=== PATIENT | female | born 1940 | race Caucasian/White ===

== ENCOUNTER → 2016-11-08 | Outpatient (CLI) | payer MEDICARE, OTHER ==
[2015-04-12 14:30] VITALS: BP 127/70
[~2016-11-08] MED LIST: ACET325T9 PO; ASPI-482 PO; ASPI81TA2 PO; ATOR10TA PO; ATOR20TA PO; CEPH-263 PO; CHOL20004 PO; CHOL500016 PO; DIPH25CA58 PO; DOCU-27 PO; DOCU50CA6 PO; FURO10DI IJ; FURO40TA4 PO; HYDR-2666 PO; HYDR473S51 PO; INSU100C SQ; INSU100V13 SQ; LOPE1LIQ7 PO; MENT200L TP; METO2.5T PO; OMEG1CAP38 PO; POLY17PO29 PO; POTA10TA31 PO; POTA20TA12 PO; POTA20TA82 PO; POTA2IV.2 IV; RIVA10TA PO; RIVA20TA2 PO; SENN8.6C2 PO; SILV20CR4 TP; TAMO10TA PO; VIT1CAPS12 PO; VITA113. TP; [UNRECOGNIZED DRUG - CODE] IV; [UNRECOGNIZED DRUG - CODE] IV; [UNRECOGNIZED DRUG - CODE] MC
--- NOTE | 2016-11-08 10:50 | RAD ---
Indication stage breast malignancy. PET/CT was performed from the skull through the proximal thigh. CT was performed primarily for attenuation and localization purposes as opposed to primary diagnostic purposes. 12.5 mCi of FDG was administered. The blood sugar during the examination was entered and 5. Note is made of a previous examination 05/17/2016. On CT the visualized brain appears unremarkable. A dominant soft tissue parenchymal mass in either lung is not seen. An acute finding in the abdomen or pelvis is not seen. Known osseous metastatic disease is seen. On PET the FDG is normally distributed in the visualized brain. No abnormal activity is seen in the neck. Osseous metastatic disease involving the sternum is again seen and appears stable. There is increased FDG activity about the right glenoid view relative to the previous exam most compatible with osseous metastatic disease. Osseous metastatic disease associated with right lower ribs appears to have progressed slightly relative to the previous exam. Osseous metastatic disease in the pelvis has progressed slightly. IMPRESSION: Slight progression of osseous metastatic disease otherwise no significant change in PET/CT imaging relative to the study 05/17/2016
== END | disposition home or self-care (01) ==
LOC: PETSC 07:12
PROVIDERS: ATTEND Internal Medicine Hematology & Oncology
DX: C79.51 Secondary malignant neoplasm of bone (principal); C18.9 Malignant neoplasm of colon, unspecified; F17.200 Nicotine dependence, unspecified, uncomplicated
CPT/HCPCS: 78815; A9552

== ENCOUNTER 2019-01-16 08:25 | Outpatient (CLI) | payer MEDICARE, OTHER ==
[2019-01-16] VITALS (8 sets, daily range): BP systolic 119–165; BP diastolic 55–78
[~2019-01-16] VITALS: Ht 175.3 cm; Wt 105.7 kg
[~2019-01-16 08:25] MED LIST changes: +ASPI-630 PO; -ASPI81TA2 PO; +ATOR40TA PO; +BIFI4CAP PO; +CAPE500T PO; -CHOL20004 PO; +CHOL200074 PO; +DOCU-109 PO; -DOCU-27 PO; -HYDR-2666 PO; +HYDR-2761 PO; +HYDR-3164 PO; +INSU100I11 SQ; +SILV20CR14 TP; -SILV20CR4 TP
[2019-01-16] MEDS ORDERED: ACET500T68 PO (08:58)
[2019-01-16] MEDS ORDERED: DOCU-109 PO (08:58)
[2019-01-16] MEDS ORDERED: LOPE2CAP88 PO (08:58)
[2019-01-16] MEDS ORDERED: VIT1CAPS12 PO (08:58)
[2019-01-16] MEDS ORDERED: BIFI4CAP PO (08:58)
[2019-01-16] MEDS ORDERED: MAGN400O7 PO (08:58)
[2019-01-16] MEDS ORDERED: ATOR40TA PO (08:58)
[2019-01-16] MEDS ORDERED: ASPI-630 PO (08:58)
[2019-01-16] MEDS ORDERED: ONDA4TAB7 PO (08:58)
[2019-01-16 09:27] LABS: CALCIUM 9.9 mg/dL (8.5-10.1); CREATININE 0.9 mg/dL (0.6-1.0); GFR 60.6; POTASSIUM 3.8 mmol/L (3.5-5.1)
[2019-01-16 09:28] LABS: BASO # 0.1 x10^3/uL (0.0-0.2); BASO % 1 % (0-3); EOS # 0.1 x10^3/uL (0.0-0.7); EOS % 2 % (0-3); HEMATOCRIT 39.5 % (36.0-47.0); HEMOGLOBIN 13.3 g/dL (12.0-15.5); LYMPH # 1.1 x10^3/uL (1.0-4.8); LYMPH % 15 % (24-48); MEAN CORPUSCULAR HEMOGLOBIN 35 pg (25-35); MEAN CORPUSCULAR HGB CONC 34 g/dL (31-37); MEAN CORPUSCULAR VOLUME 104 fL (79-100); MONO # 0.9 x10^3/uL (0.0-1.1); MONO % 13 % (0-9); NEUT # 5.1 x10^3/uL (1.8-7.7); NEUT % 70 % (31-73); PLATELET COUNT 141 x10^3/uL (140-400); RED BLOOD COUNT 3.81 x10^6/uL (3.50-5.40); RED CELL DISTRIBUTION WIDTH 17.7 % (11.5-14.5); WHITE BLOOD COUNT 7.2 x10^3/uL (4.0-11.0)
[2019-01-16 09:34] LABS: ALBUMIN 3.5 g/dL (3.4-5.0); ALBUMIN/GLOBULIN RATIO 0.8 (1.0-1.7); TOTAL BILIRUBIN 0.4 mg/dL (0.2-1.0)
[2019-01-16] MEDS ORDERED: LIDOCAINE 1%/EPI 1:100,000 20 ML VIAL. ONE (09:37)
[2019-01-16 09:43] LABS: PROTHROMBIN TIME PATIENT 14.1 SEC (11.7-14.0)
[2019-01-16] MEDS ORDERED: fentaNYL PF VIAL 100 MCG/2 ML VIAL ONE (09:55)
[2019-01-16] MEDS ORDERED: MIDAZOLAM HCL/PF 2 MG/2 ML VIAL. ONE (09:55)
[2019-01-16] MEDS ORDERED: fentaNYL PF VIAL 100 MCG/2 ML VIAL IV ONE (10:15)
[2019-01-16] MEDS ORDERED: MIDAZOLAM HCL/PF 2 MG/2 ML VIAL. IV ONE (10:15)
[2019-01-16] MEDS ORDERED: LIDOCAINE 1%/EPI 1:100,000 20 ML VIAL. IJ ONE (10:15)
--- NOTE | 2019-01-16 12:30 | NUR ---
Discharge Note: BRIGHT MENSAH Discharge instructions and discharge home medications reviewed with Patient and a copy given. All questions have been answered and understanding verbalized. The following instructions and handouts were given: Post moderate sedation and port placement; port information booklet given. Discontinued lines and drains: None to D/C. Patient discharged [facility] with health care worker via [facility] van.
--- NOTE | 2019-01-16 13:52 | RAD ---
Procedure: Ultrasound and fluoroscopically guided placement of right internal jugular power port.. 01/16/2019 1:48 PM Clinical Indication: Long-term antibiotic use Sedation: Conscious sedation was administered for 30 minutes. The patient was monitored by a qualified independent observer throughout the time of sedation. Please refer to the medical record for exact doses of medications utilized to achieve moderate sedation. Fluoroscopy time: 1.2 minutes Dose area product: 3 Gycm2 Consent: The procedure was explained in its entirety to the patient or the patients designated territory representative by a member of the treatment team, including a discussion of the risks, benefits and commonly accepted alternatives to the procedure, as well as the expected consequences of no therapy whatsoever. Discussion of the risks included, but was not limited to, those that are most frequent and those that are rare but possibly severe or life-threatening, as well as the possibility of unforeseen complications. Technique and Findings: All elements of maximal sterile barrier technique including the use of a cap, mask, sterile gown, sterile gloves, large sterile sheet, appropriate hand hygiene, and 2% chlorhexidine for cutaneous antisepsis (or acceptable alternative antiseptic per current guidelines) were followed for this procedure. Following informed consent, and a timeout procedure, the patient was prepped and draped in the usual sterile fashion. Ultrasound interrogation of the right neck revealed patency and compressibility of the right internal jugular vein. A 21-gauge micropuncture was then used to gain access to this vein under ultrasound guidance. A hard copy ultrasound image was recorded. The needle was exchanged over a wire for a sheath. A 1 inch incision was made several centimeters inferior to the venotomy site. A catheter was tunneled from this site dermatotomy site in the neck. Catheter was advanced through peel-away sheath such that its tip was in the proximal right atrium with the patient supine. The catheter was trimmed to length and connected to the port reservoir. The port was found to flush and aspirate normally. The final position of the catheter was confirmed by fluoroscopy, with tip at the cavoatrial junction. The wound was closed in layers using 4-0 Vicryl suture. Sterile dressings were applied. Impression: Successful ultrasound and fluoroscopically guided placement of a right internal jugular PowerPort
== END 2019-01-16 12:30 ==
LOC: INTRAD 08:25
PROVIDERS: ATTEND Internal Medicine Infectious Disease
DX: Z45.2 Encounter for adjustment and management of vascular access device (principal); L03.818 Cellulitis of other sites; Z79.01 Long term (current) use of anticoagulants
CPT/HCPCS: 36415; 36561; 76937; 77001; 80053; 85025; 85610; 99152; 99153; C1751; C1892; J0696; J2250; J3010; J3490; 36558

== ENCOUNTER 2021-10-23 11:16 | Inpatient (IN) | payer MEDICARE, OTHER ==
[~2021-10-23] VITALS: Ht 165.1 cm; Wt 105.5 kg
[~2021-10-23 11:16] MED LIST changes: +ACET500T68 PO; +LOPE-101 PO; +MAGN400O7 PO; +ONDA4TAB7 PO; +POTA20TA4 PO; -POTA20TA82 PO; -TAMO10TA PO; +TAMO10TA6 PO
[2021-10-23] MEDS ORDERED: ONDANSETRON PF 4 MG/2 ML VIAL. IVP ONE (13:45)
[2021-10-23] MEDS ORDERED: CONTRAST GIVEN. MC PRN (13:45)
[2021-10-23] MEDS ORDERED: IOHEXOL 300 MG/ML 100ML VIAL. IV ONE (13:45)
[2021-10-23 13:53] LABS: FECAL OB PT POSITIVE (NEG)
[2021-10-23 14:45] LABS: BASO # 0.1 x10^3/uL (0.0-0.2); BASO % 1 % (0-3); EOS # 0.2 x10^3/uL (0.0-0.7); EOS % 3 % (0-3); HEMATOCRIT 25.7 % (36.0-47.0); HEMOGLOBIN 8.2 g/dL (12.0-15.5); LYMPH # 0.9 x10^3/uL (1.0-4.8); LYMPH % 11 % (24-48); MEAN CORPUSCULAR HEMOGLOBIN 28 pg (25-35); MEAN CORPUSCULAR HGB CONC 32 g/dL (31-37); MEAN CORPUSCULAR VOLUME 86 fL (79-100); MONO % 14 % (0-9); NEUT # 5.3 x10^3/uL (1.8-7.7); NEUT % 70 % (31-73); PLATELET COUNT 216 x10^3/uL (140-400); RED BLOOD COUNT 2.97 x10^6/uL (3.50-5.40); RED CELL DISTRIBUTION WIDTH 19.3 % (11.5-14.5); WHITE BLOOD COUNT 7.5 x10^3/uL (4.0-11.0)
--- NOTE | 2021-10-23 15:33 | PHYS DOC ---
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 Patient denies any abdominal pain, denies any shortness of breath, denies any fever coughing or congestion. Reports seeing clots of blood on her diaper for the last 2 days. Reports history of rectal bleeding from hemorrhoids but she was not sure if this is a rectal bleed or vaginal bleeding. Review of Systems: Review of Systems: Constitutional: Denies fever or chills. [] Eyes: Denies change in visual acuity. [] HENT: Denies nasal congestion or sore throat. [] Respiratory: Denies cough or shortness of breath. [] Cardiovascular: Denies chest pain or edema. [] GI: Reports vaginal bleeding/rectal bleeding, denies nausea, vomiting, bloody stools or diarrhea. [] : Denies dysuria. [] Musculoskeletal: Denies back pain or joint pain. [] Integument: Denies rash. [] Neurologic: Denies headache, focal weakness or sensory changes. [] Psychiatric: Denies depression or anxiety. [] Heart Score: C/O Chest Pain: N/A Risk Factors: Risk Factors: DM, Current or recent (<one month) smoker, HTN, HLP, family h istory of CAD, obesity. Risk Scores: Score 0 - 3: 2.5% MACE over next 6 weeks - Discharge Home Score 4 - 6: 20.3% MACE over next 6 weeks - Admit for Clinical Observation Score 7 - 10: 72.7% MACE over next 6 weeks - Early Invasive Strategies Current Medications: Current Medications Medications (Trade) Dose Ordered Sig/Kamala Start Time Stop Time Status Last Admin Dose Admin Info (CONTRAST GIVEN -- Rx MONITORING) 1 each PRN DAILY PRN 10/23/21 13:45 10/25/21 13:44 Iohexol (Omnipaque 300 Mg/ml) 75 ml 1X ONCE 10/23/21 13:45 10/23/21 13:46 DC Morphine Sulfate (Morphine Sulfate) 4 mg PRN Q15MIN PRN 10/23/21 13:45 10/24/21 13:44 Ondansetron HCl (Zofran) 4 mg 1X ONCE 10/23/21 13:45 10/23/21 13:46 DC Allergies: Allergies: Allergies Coded Allergies Type Severity Reaction Last Updated Verified ibuprofen Allergy Unknown 10/23/21 Yes Physical Exam: PE: Constitutional: Well developed, well nourished, no acute distress, non-toxic appearance. [] HENT: Normocephalic, atraumatic, bilateral external ears normal, oropharynx moist, no oral exudates, nose normal. [] Eyes: PERRLA, EOMI, conjunctiva normal, no discharge. [] Neck: Normal range of motion, no tenderness, supple, no stridor. [] Cardiovascular:Heart rate regular rhythm, no murmur [] Lungs & Thorax: Bilateral breath sounds clear to auscultation [] Abdomen: Bowel sounds normal, soft, no tenderness, no masses, no pulsatile masses. [] Pelvic exam-external vaginal region with no obvious signs of bleeding, patient could not tolerate her legs on the stirrups to do a full pelvic exam. External rectum noted for multiple nonthrombosed hemorrhoids, positive Hemoccult. Back: No tenderness, no CVA tenderness. [] Extremities: No tenderness, no cyanosis, no clubbing, ROM intact, no edema. [] Neurologic: Alert and oriented X 3, normal motor function, normal sensory function, no focal deficits noted. [] Psychologic: Affect normal, judgement normal, mood normal. [] Current Patient Data: Labs: Laboratory Tests Test 10/23/21 13:30 10/23/21 14:35 Stool Occult Blood Positive (NEG) White Blood Count 7.5 x10^3/uL (4.0-11.0) Red Blood Count 2.97 x10^6/uL (3.50-5.40) L Hemoglobin 8.2 g/dL (12.0-15.5) L Hematocrit 25.7 % (36.0-47.0) L Mean Corpuscular Volume 86 fL (79-100) Mean Corpuscular Hemoglobin 28 pg (25-35) Mean Corpuscular Hemoglobin Concent 32 g/dL (31-37) Red Cell Distribution Width 19.3 % (11.5-14.5) H Platelet Count 216 x10^3/uL (140-400) Neutrophils (%) (Auto) 70 % (31-73) Lymphocytes (%) (Auto) 11 % (24-48) L Monocytes (%) (Auto) 14 % (0-9) H Eosinophils (%) (Auto) 3 % (0-3) Basophils (%) (Auto) 1 % (0-3) Neutrophils # (Auto) 5.3 x10^3/uL (1.8-7.7) Lymphocytes # (Auto) 0.9 x10^3/uL (1.0-4.8) L Monocytes # (Auto) 1.0 x10^3/uL (0.0-1.1) Eosinophils # (Auto) 0.2 x10^3/uL (0.0-0.7) Basophils # (Auto) 0.1 x10^3/uL (0.0-0.2) Laboratory Tests 10/23/21 14:35 Vital Signs: Vital Signs Date Time Temp Pulse Resp B/P (MAP) Pulse Ox O2 Delivery O2 Flow Rate FiO2 10/23/21 13:53 98.1 79 18 134/62 (86) 93 Room Air 98.1 EKG: EKG: [] Radiology/Procedures: Radiology/Procedures: []PROCEDURE: CT ABDOMEN PELVIS WO CONTRAST Exam: CT abdomen/pelvis without intravenous contrast Indication: Rectal and vaginal bleeding, history of metastatic breast cancer Comparison: CT chest 7 pelvis 05/05/2018 Technique: Helical CT imaging performed of the abdomen and pelvis without the use of intravenous contrast. Sagittal and coronal reformats were obtained. One or more of the following individualized dose reduction techniques were utilized for this examination: 1. Automated exposure control 2. Adjustment of the mA and/or kV according to patient size 3. Use of iterative reconstruction technique. Findings: Inherently limited evaluation without intravenous contrast. Lower chest: The heart is normal size. There is a right chest wall port with tip terminating at the superior cavoatrial junction. There are coronary artery calcifications. There are new or increased small mediastinal lymph nodes, incompletely evaluated. There are 2 new pulmonary nodules along the minor fissure measuring 4 mm (image 10, series 2). There is a new 3 mm nodule in the anterior right upper lobe (image 6, series 2). There is a new 4 mm nodule in the right lower lobe (image 12, series 2). There is no new consolidative opacities in the posterior medial left lower lobe. Liver: Unremarkable noncontrast appearance of the liver. Gallbladder/Biliary Tree: Cholelithiasis. Pancreas: There is diffuse pancreatic atrophy. Spleen: Normal. Adrenal Glands: Normal. Kidneys/Ureters/Bladder: Kidneys are normal in size. No nephrolithiasis. There is new mild bilateral hydronephrosis and hydroureter. No obstructing calculus seen. There is new moderate bladder wall thickening, greatest anteriorly. Reproductive Organs: Enlarged, leiomyomatous uterus with multiple calcified fibroids, grossly unchanged. No adnexal mass. Stomach, small bowel, and colon: The stomach, small bowel, appendix, and colon are unremarkable. There is some soft tissue thickening in the region of the anus, not well evaluated and nonspecific. Vasculature: No aortic aneurysm. There is mild calcified aortoiliac atherosclerosis. There is an IVC filter in place. Lymph Nodes: No lymphadenopathy. A portacaval lymph node is slightly larger, now 1.1 cm short axis, previously 0.6 cm short axis. Peritoneum and retroperitoneum: No free fluid or free air. Bones: There are diffuse bony metastases, with worsened osseous destruction of the pelvis and multiple lumbar and thoracic vertebral bodies. New compression fracture of T8 with 30 percent height loss. There are old compression fractures at L1, L3, L4, and L5. Additional old compression fracture at T9. The L1, L4, L5 compression fractures have up to 50 percent vertebral body height loss. This has mildly increased at L4. No retropulsion of any fractures. There are multiple bilateral rib lesions and old or healing rib fractures. There is an increased or new soft tissue component along a right posterior ninth rib lesion. Miscellaneous: There is subcutaneous fat stranding in the lower anterior abdominal wall, related to edema or medication injections. Diffuse muscular atrophy in the pelvis and proximal thighs. A partially visualized 4.1 x 2.9 cm fat-containing intramuscular mass in the left proximal thigh is redemonstrated and likely a lipoma. IMPRESSION: 1. Worsened diffuse osseous metastatic disease with increased bony destruction of the pelvis and increased metastatic disease in the lumbar spine. There is a new compression fracture of T8 and multiple old compression fractures in the lower thoracic and lumbar spine. 2. There is a new soft tissue component along a right posterior ninth rib lesion. 3. Several new pulmonary nodules in the right lung base, nonspecific. New left lower lobe opacities, which could be pneumonia or atelectasis. 4. No acute abnormality of the bowel. There is questionable soft tissue thickening in the region of anus, which is nonspecific and not well evaluated by CT. Correlate with physical exam. 5. New mild bilateral hydronephrosis and hydroureter without obstructing calculus visualized. 6. New moderate wall thickening with bladder, greatest anteriorly. Underlying bladder mass or infection not excluded. 7. Enlarged, leiomyomatous uterus, unchanged. 8. Cholelithiasis. 9. A retrievable IVC filter is noted, and the referring physician is encouraged to ensure that a management plan for this filter is in place. If no such plan is present, referral to an interventional clinician on a non-emergent basis should be considered. The [employer] appropriateness criteria for placement and management of IVC filters can be found on the web at: www.acr.org/quality-safety/appropriateness-criteria/interventional Electronically signed by: Sherice Martinez MD (10/23/2021 5:10 PM) [facility] DICTATED and SIGNED BY: SHERICE MARTINEZ MD DATE: 10/23/21 7427 Course & Med Decision Making: Course & Med Decision Making Pertinent Labs and Imaging studies reviewed. (See chart for details) This is a 81-year-old female patient presented to the ED today with vaginal bleeding/rectal bleeding, symptoms for 2 days. Physical exam of the exterior vaginal area does not show signs of bleeding though exam is difficult because patient will not tolerate stirrup position, rectal exam is positive for hemorrhoids and bleeding with clots Vitals on arrival to the ED temperature 99.2, heart rate 73, respiration 20, blood pressure 126/60, O2 sats 94% on room air. CBC with a normal WBC, hemoglobin 8.2 with hematocrit of 25.7, CMP with creatini ne of 1.7, BUN is 20, [id number]. Patient was started on IV fluids. Hemoccult positive. Urine positive for UTI, and started on Rocephin Spoke with Dr. Vivar who accepted patient for admission Routine consult placed for GI, general surgery, MISSING [employer] INVESTIGATOR. Miriam Disclaimer: Miriam Disclaimer: This electronic medical record was generated, in whole or in part, using a voice recognition dictation system. Departure Departure Impression: Primary Impression: Hemorrhoids Qualified Codes: K64.9 - Unspecified hemorrhoids Additional Impressions: Anemia Qualified Codes: D64.9 - Anemia, unspecified Compression fracture of T8 vertebra Qualified Codes: S22.060A - Wedge compression fracture of T7-T8 vertebra, initial encounter for closed fracture Abnormal uterine bleeding Disposition: ADMITTED INPATIENT Condition: STABLE Referrals: STANISLAV CAVAZOS MD (PCP) FANTASMA KOENIG [employer]ER October 23, 2021 15:33
[2021-10-23 15:46] LABS: PROTHROMBIN TIME PATIENT 17.8 SEC (11.7-14.0)
[2021-10-23 15:51] LABS: ALBUMIN/GLOBULIN RATIO 0.5 (1.0-1.7); CREATININE 1.7 mg/dL (0.6-1.0); GFR 28.8; POTASSIUM 4.3 mmol/L (3.5-5.1); TOTAL BILIRUBIN 0.2 mg/dL (0.2-1.0); TOTAL PROTEIN 8.6 g/dL (6.4-8.2)
[2021-10-23] MEDS: MORPHINE SULFATE 4 MG/ML INJ. IV/SQ PRN (15:56)
[2021-10-23 15:58] LABS: CALCIUM 12.5 mg/dL (8.5-10.1)
[2021-10-23 16:23] LABS: BACTERIA,URINE MODERATE /HPF (0-FEW); RBC,URINE FIELD OBSCURED /HPF (0-2); WBC,URINE 20-40 /HPF (0-4)
--- NOTE | 2021-10-23 17:12 | RAD ---
Exam: CT abdomen/pelvis without intravenous contrast Indication: Rectal and vaginal bleeding, history of metastatic breast cancer Comparison: CT chest 7 pelvis 05/05/2018 Technique: Helical CT imaging performed of the abdomen and pelvis without the use of intravenous cont rast. Sagittal and coronal reformats were obtained. One or more of the following individualized dose reduction techniques were utilized for this examinat ion: 1. Automated exposure control 2. Adjustment of the mA and/or kV according to patient size 3. Use of iterative reconstruction technique. Findings: Inherently limited evaluation without intravenous contrast. Lower chest: The heart is normal size. There is a right chest wall port with tip terminating at the s uperior cavoatrial junction. There are coronary artery calcifications. There are new or increased sma ll mediastinal lymph nodes, incompletely evaluated. There are 2 new pulmonary nodules along the minor fissure measuring 4 mm (image 10, series 2). There is a new 3 mm nodule in the anterior right upper lobe (image 6, series 2). There is a new 4 mm nodule in the right lower lobe (image 12, series 2). Th ere is no new consolidative opacities in the posterior medial left lower lobe. Liver: Unremarkable noncontrast appearance of the liver. Gallbladder/Biliary Tree: Cholelithiasis. Pancreas: There is diffuse pancreatic atrophy. Spleen: Normal. Adrenal Glands: Normal. Kidneys/Ureters/Bladder: Kidneys are normal in size. No nephrolithiasis. There is new mild bilateral hydronephrosis and hydroureter. No obstructing calculus seen. There is new moderate bladder wall thic kening, greatest anteriorly. Reproductive Organs: Enlarged, leiomyomatous uterus with multiple calcified fibroids, grossly unchang ed. No adnexal mass. Stomach, small bowel, and colon: The stomach, small bowel, appendix, and colon are unremarkable. Ther e is some soft tissue thickening in the region of the anus, not well evaluated and nonspecific. Vasculature: No aortic aneurysm. There is mild calcified aortoiliac atherosclerosis. There is an IVC filter in place. Lymph Nodes: No lymphadenopathy. A portacaval lymph node is slightly larger, now 1.1 cm short axis, p reviously 0.6 cm short axis. Peritoneum and retroperitoneum: No free fluid or free air. Bones: There are diffuse bony metastases, with worsened osseous destruction of the pelvis and multipl e lumbar and thoracic vertebral bodies. New compression fracture of T8 with 30 percent height loss. T here are old compression fractures at L1, L3, L4, and L5. Additional old compression fracture at T9. The L1, L4, L5 compression fractures have up to 50 percent vertebral body height loss. This has mildl y increased at L4. No retropulsion of any fractures. There are multiple bilateral rib lesions and old or healing rib fractures. There is an increased or n ew soft tissue component along a right posterior ninth rib lesion. Miscellaneous: There is subcutaneous fat stranding in the lower anterior abdominal wall, related to e samir or medication injections. Diffuse muscular atrophy in the pelvis and proximal thighs. A partiall y visualized 4.1 x 2.9 cm fat-containing intramuscular mass in the left proximal thigh is redemonstra yulissa and likely a lipoma. IMPRESSION: 1. Worsened diffuse osseous metastatic disease with increased bony destruction of the pelvis and inc reased metastatic disease in the lumbar spine. There is a new compression fracture of T8 and multiple old compression fractures in the lower thoracic and lumbar spine. 2. There is a new soft tissue component along a right posterior ninth rib lesion. 3. Several new pulmonary nodules in the right lung base, nonspecific. New left lower lobe opacities, which could be pneumonia or atelectasis. 4. No acute abnormality of the bowel. There is questionable soft tissue thickening in the region of anus, which is nonspecific and not well evaluated by CT. Correlate with physical exam. 5. New mild bilateral hydronephrosis and hydroureter without obstructing calculus visualized. 6. New moderate wall thickening with bladder, greatest anteriorly. Underlying bladder mass or infect ion not excluded. 7. Enlarged, leiomyomatous uterus, unchanged. 8. Cholelithiasis. 9. A retrievable IVC filter is noted, and the referring physician is encouraged to ensure that a sima gement plan for this filter is in place. If no such plan is present, referral to an interventional cl inician on a non-emergent basis should be considered. The [employer] appropriatene ss criteria for placement and management of IVC filters can be found on the web at: www.acr.org/quality-safety/appropriateness-criteria/interventional Electronically signed by: Sherice Martinez MD (10/23/2021 5:10 PM) [facility]
--- NOTE | 2021-10-23 18:58 | PDOC1 ---
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 Over the past 2 days she has started to notice clots as well. She has rectal bleeding from hemorrhoids and initially told ED she had vaginal bleeding. She was treated outpatient twice in the past year for hemorrhoids at [facility]. She is being followed outpatient for metastatic breast cancer with bony mets, was unable to tolerate gemcitabine therapy and quit this last year due to swelling of her legs. She now has become wheelchair bound, notes her right knee is "locking up" all the time recently. No recent travel or sick contacts. Labs with WBC 7.5, Hb 8.2, platelets 216, NA 140, K4.3, BUN 50, CR 1.7, glucose 101, calcium 12.5 with albumin 3, alkaline phosphatase 195, ALT 18, AST 57, INR 1.5, urine urinalysis with large leuk esterase, fecal occult positive. CT abdomen pelvis concerning for worsened diffuse osseous metastatic disease with increased bony destruction of the pelvis and increased metastatic disease in the lumbar spine. New compression fracture of T8 and multiple old compression fractures in the lower thoracic and lumbar spine and a new soft tissue component along a right posterior ninth rib lesion. Bladder mass and mild hydronephrosis noted as well. Past Medical History Cardiovascular: HTN Heme/Onc: Cancer, Other Endocrine: Diabetes Past Surgical History Past Surgical History Hemorrhoids, Breast cancer w/ bone mets Past Surgical History: Tonsillectomy, Other Additional Past Surgical Histo: vein graft, R mastectomy, R leg, Past Surgical History: Mastectomy, Hysterectomy Family History Family History: Coronary Artery Disease, Diabetes, Other Social History Smoke: No ALCOHOL: none Current Medications Current Medications Current Medications Morphine Sulfate (Morphine Sulfate) 4 mg PRN Q15MIN PRN IV/SQ PAIN GREATER THAN 3/10 Last administered on 10/23/21at 15:56; Start 10/23/21 at 13:45; Stop 10/24/21 at 13:44 Ondansetron HCl (Zofran) 4 mg 1X ONCE IVP Last administered on 10/23/21at 15:56; Start 10/23/21 at 13:45; Stop 10/23/21 at 13:46; Status DC Iohexol (Omnipaque 300 Mg/ml) 75 ml 1X ONCE IV ; Start 10/23/21 at 13:45; Stop 10/23/21 at 13:46; Status DC Info (CONTRAST GIVEN -- Rx MONITORING) 1 each PRN DAILY PRN MC SEE COMMENTS; Start 10/23/21 at 13:45; Stop 10/25/21 at 13:44 Active Scripts Active Reported Imodium A-D (Loperamide HCl) 2 Mg Capsule 2 Mg PO PRN Align (Bifidobacterium Infantis) 4 Mg Capsule 4 Mg PO DAILY Acetaminophen 500 Mg Tablet 500 Mg PO TID Milk Of Magnesia (Magnesium Hydroxide) 400 Mg/5 Ml Oral.susp 400 Mg PO PRN Zofran (Ondansetron Hcl) 4 Mg Tablet 1 Tab PO Q6HRS Lipitor (Atorvastatin Calcium) 40 Mg Tablet 1 Tab PO QHS Colace (Docusate Sodium) 100 Mg Capsule 100 Mg PO DAILY Preservision Areds Softgel (Vit A/Vit C/Vit E/Zinc/Copper) 1 Each Capsule 1 Each PO 1X Aspirin 81 Mg Tab.chew 1 Tab PO DAILY Align (Bifidobacterium Infantis) 4 Mg Capsule 4 Mg PO DAILY [place] 5-325 Tablet (Acetaminophen/Hydrocodone Bitart) 1 Each Tablet 1 Tab PO PRN Q6HRS PRN Humalog (Insulin Lispro) 100 Unit/1 Ml Insuln.pen 24 Unit SQ BID Levemir (Insulin Detemir) 100 Unit/1 Ml Vial 42 Unit SQ DAILYWBKFT Lipitor (Atorvastatin Calcium) 40 Mg Tablet 40 Mg PO HS Colace (Docusate Sodium) 100 Mg Capsule 100 Mg PO 2TABS PO DAILY Potassium Chloride 20 Meq Tab.er.prt 20 Meq PO 2TABS(40MEQ) BID Preservision Areds Softgel (Vit A/Vit C/Vit E/Zinc/Copper) 1 Each Capsule 1 Each PO DAILY Xarelto (Rivaroxaban) 20 Mg Tablet 20 Mg PO DAILY Levemir (Insulin Detemir) 100 Unit/1 Ml Vial 65 Unit SQ HS Furosemide 40 Mg Tablet 20 Mg PO BID Allergies Allergies: Coded Allergies: ibuprofen (Verified Allergy, Unknown, 10/23/21) ROS General: YES: Fatigue, Malaise, Appetite; No: Chills, Night Sweats, Other PSYCHOLOGICAL ROS: No: Anxiety, Behavioral Disorder, Concentration difficultie, Decreased libido, Depression, Disorientation, Hallucinations, Hostility, Irritablity, Memory difficulties, Mood Swings, Obsessive thoughts, Physical abuse, Sexual abuse, Sleep disturbances, Suicidal ideation, Other Eyes: No Blurry vision, No Decreased vision, No Double vision, No Dry eyes, No Excessive tearing, No Eye Pain, No Itchy Eyes, No Loss of vision, No Photophobia, No Scotomata, No Uses contacts, No Uses glasses, No Other HEENT: No: Heacaches, Visual Changes, Hearing change, Nasal congestion, Nasal discharge, Oral lesions, Sinus pain, Sore Throat, Epistaxis, Sneezing, Snoring, Tinnitus, Vertigo, Vocal changes, Other ALLERGY AND IMMUNOLOGY: No: Hives, Insect Bite Sensitivity, Itchy/Watery Eyes, Nasal Congestion, Post Nasal Drip, Seasonal Allergies, Other Hematological and Lymphatic: No: Bleeding Problems, Blood Clots, Blood Tra nsfusions, Brusing, Night Sweats, Pallor, Swollen Lymph Nodes, Other ENDOCRINE: No: Breast Changes, Galactorrhea, Hair Pattern Changes, Hot Flashes, Malaise/lethargy, Mood Swings, Palpitations, Polydipsia/polyuria, Skin Changes, Temperature Intolerance, Unexpected Weight Changes, Other Breast: No New/Changing Breast Lumps, No Nipple changes, No Nipple discharge, No Other Respiratory: No: Cough, Hemoptysis, Orthopnea, Pleuritic Pain, Shortness of breath, SOB with excertion, Sputum Changes, Stridor, Tachypnea, Wheezing, Other Cardiovascular: No Chest Pain, No Palpitations, No Orthopnea, No Paroxysmal Noc. Dyspnea, No Edema, No Lt Headedness, No Other Gastrointestinal: Yes Hematochezia; No Nausea, No Vomiting, No Abdominal Pain, No Diarrhea, No Constipation, No Melena, No Other Genitourinary: YES Urgency; No Dysuria, No Frequency, No Incontinence, No Hematuria, No Retention, No Discharge, No Pain, No Flank Pain, No Other, No , No , No , No , No , No , No Musculoskeletal: Yes Gait Disturbance, Yes Joint Pain, Yes Muscular Weakness; No Joint Stiffness, No Joint Swelling, No Muscle Pain, No Pain In:, No Swelling In:, No Other Neurological: Yes Gait Disturbance; No Behavorial Changes, No Bowel/Bladder ControlChng, No Confusion, No Dizziness, No Headaches, No Impaired Coord/balance, No Memory Loss, No Numbness/Tingling, No Seizures, No Speech Problems, No Tremors, No Visual Changes, No Weakness, No Other Skin: No Dry Skin, No Eczema, No Hair Changes, No Lumps, No Mole Changes, No Mottling, No Nail Changes, No Pruritus, No Rash, No Skin Lesion Changes, No Other, No Acne Physical Exam General: Alert, Oriented X3, Cooperative, moderate distress HEENT: Atraumatic, PERRLA, EOMI, Mucous membr. moist/pink Lungs: Clear to auscultation, Normal air movement Heart: S1S2, RRR, no thrills, no rubs, no gallops, no murmurs Abdomen: Normal bowel sounds, Soft, No tenderness, No hepatosplenomegaly, No masses Rectal Exam: hemorrhoids Extremities: No clubbing, No cyanosis, No edema, Normal pulses, No tenderness/swelling Skin: No rashes, No breakdown, No significant lesion Neuro: Normal speech, Strength at 5/5 X4 ext, Normal tone, Sensation intact, Cranial nerves 3-12 NL, Reflexes 2+ Psych/Mental Status: Mental status NL, Mood NL Vitals Vitals Vital Signs Date Time Temp Pulse Resp B/P (MAP) Pulse Ox O2 Delivery O2 Flow Rate FiO2 10/23/21 17:23 72 113/59 (77) 93 Room Air 10/23/21 15:56 18 10/23/21 13:53 98.1 98.1 Labs Labs Laboratory Tests Test 10/23/21 13:30 10/23/21 14:35 10/23/21 14:50 10/23/21 15:20 Stool Occult Blood Positive (NEG) White Blood Count 7.5 x10^3/uL (4.0-11.0) Red Blood Count 2.97 x10^6/uL (3.50-5.40) Hemoglobin 8.2 g/dL (12.0-15.5) Hematocrit 25.7 % (36.0-47.0) Mean Corpuscular Volume 86 fL (79-100) Mean Corpuscular Hemoglobin 28 pg (25-35) Mean Corpuscular Hemoglobin Concent 32 g/dL (31-37) Red Cell Distribution Width 19.3 % (11.5-14.5) Platelet Count 216 x10^3/uL (140-400) Neutrophils (%) (Auto) 70 % (31-73) Lymphocytes (%) (Auto) 11 % (24-48) Monocytes (%) (Auto) 14 % (0-9) Eosinophils (%) (Auto) 3 % (0-3) Basophils (%) (Auto) 1 % (0-3) Neutrophils # (Auto) 5.3 x10^3/uL (1.8-7.7) Lymphocytes # (Auto) 0.9 x10^3/uL (1.0-4.8) Monocytes # (Auto) 1.0 x10^3/uL (0.0-1.1) Eosinophils # (Auto) 0.2 x10^3/uL (0.0-0.7) Basophils # (Auto) 0.1 x10^3/uL (0.0-0.2) Urine Collection Type Unknown Urine Color (Auto) Light orange Urine Turbidity Hazy Urine pH (Auto) 6.5 (<5.0-8.0) Urine Specific [place] 1.012 (1.000-1.030) Urine Protein (Auto) Negative mg/dL (Negative) Urine Glucose (Auto)(UA) Negative mg/dL (Negative) Urine Ketones (Auto) Negative mg/dL (Negative) Urine Blood (Auto) Large (Negative) Urine Nitrite Negative (Negative) Urine Bilirubin (Auto) Negative (Negative) Urine Urobilinogen (Auto) Normal mg/dL (Normal) Urine Leukocyte Esterase (Auto) Large (Negative) Urine RBC Field obscured /HPF (0-2) Urine WBC 20-40 /HPF (0-4) Urine Squamous Epithelial Cells Occ /LPF Urine Bacteria Moderate /HPF (0-FEW) Prothrombin Time 17.8 SEC (11.7-14.0) Prothromb Time International Ratio 1.5 (0.8-1.1) Activated Partial Thromboplast Time 34 SEC (24-38) Sodium Level 140 mmol/L (136-145) Potassium Level 4.3 mmol/L (3.5-5.1) Chloride Level 103 mmol/L (98-107) Carbon Dioxide Level 27 mmol/L (21-32) Anion Gap 10 (6-14) Blood Urea Nitrogen 50 mg/dL (7-20) Creatinine 1.7 mg/dL (0.6-1.0) Estimated GFR (Cockcroft-Gault) 28.8 BUN/Creatinine Ratio 29 (6-20) Glucose Level 101 mg/dL (70-99) Calcium Level 12.5 mg/dL (8.5-10.1) Total Bilirubin 0.2 mg/dL (0.2-1.0) Aspartate Amino Transf (AST/SGOT) 57 U/L (15-37) Alanine Aminotransferase (ALT/SGPT) 18 U/L (14-59) Alkaline Phosphatase 195 U/L (46-116) Total Protein 8.6 g/dL (6.4-8.2) Albumin 3.0 g/dL (3.4-5.0) Albumin/Globulin Ratio 0.5 (1.0-1.7) Laboratory Tests Test 10/23/21 13:30 10/23/21 14:35 10/23/21 14:50 10/23/21 15:20 Stool Occult Blood Positive (NEG) White Blood Count 7.5 x10^3/uL (4.0-11.0) Red Blood Count 2.97 x10^6/uL (3.50-5.40) Hemoglobin 8.2 g/dL (12.0-15.5) Hematocrit 25.7 % (36.0-47.0) Mean Corpuscular Volume 86 fL (79-100) Mean Corpuscular Hemoglobin 28 pg (25-35) Mean Corpuscular Hemoglobin Concent 32 g/dL (31-37) Red Cell Distribution Width 19.3 % (11.5-14.5) Platelet Count 216 x10^3/uL (140-400) Neutrophils (%) (Auto) 70 % (31-73) Lymphocytes (%) (Auto) 11 % (24-48) Monocytes (%) (Auto) 14 % (0-9) Eosinophils (%) (Auto) 3 % (0-3) Basophils (%) (Auto) 1 % (0-3) Neutrophils # (Auto) 5.3 x10^3/uL (1.8-7.7) Lymphocytes # (Auto) 0.9 x10^3/uL (1.0-4.8) Monocytes # (Auto) 1.0 x10^3/uL (0.0-1.1) Eosinophils # (Auto) 0.2 x10^3/uL (0.0-0.7) Basophils # (Auto) 0.1 x10^3/uL (0.0-0.2) Urine Collection Type Unknown Urine Color (Auto) Light orange Urine Turbidity Hazy Urine pH (Auto) 6.5 (<5.0-8.0) Urine Specific [place] 1.012 (1.000-1.030) Urine Protein (Auto) Negative mg/dL (Negative) Urine Glucose (Auto)(UA) Negative mg/dL (Negative) Urine Ketones (Auto) Negative mg/dL (Negative) Urine Blood (Auto) Large (Negative) Urine Nitrite Negative (Negative) Urine Bilirubin (Auto) Negative (Negative) Urine Urobilinogen (Auto) Normal mg/dL (Normal) Urine Leukocyte Esterase (Auto) Large (Negative) Urine RBC Field obscured /HPF (0-2) Urine WBC 20-40 /HPF (0-4) Urine Squamous Epithelial Cells Occ /LPF Urine Bacteria Moderate /HPF (0-FEW) Prothrombin Time 17.8 SEC (11.7-14.0) Prothromb Time International Ratio 1.5 (0.8-1.1) Activated Partial Thromboplast Time 34 SEC (24-38) Sodium Level 140 mmol/L (136-145) Potassium Level 4.3 mmol/L (3.5-5.1) Chloride Level 103 mmol/L (98-107) Carbon Dioxide Level 27 mmol/L (21-32) Anion Gap 10 (6-14) Blood Urea Nitrogen 50 mg/dL (7-20) Creatinine 1.7 mg/dL (0.6-1.0) Estimated GFR (Cockcroft-Gault) 28.8 BUN/Creatinine Ratio 29 (6-20) Glucose Level 101 mg/dL (70-99) Calcium Level 12.5 mg/dL (8.5-10.1) Total Bilirubin 0.2 mg/dL (0.2-1.0) Aspartate Amino Transf (AST/SGOT) 57 U/L (15-37) Alanine Aminotransferase (ALT/SGPT) 18 U/L (14-59) Alkaline Phosphatase 195 U/L (46-116) Total Protein 8.6 g/dL (6.4-8.2) Albumin 3.0 g/dL (3.4-5.0) Albumin/Globulin Ratio 0.5 (1.0-1.7) Images Images CT abdomen/pelvis without intravenous contrast Indication: Rectal and vaginal bleeding, history of metastatic breast cancer Comparison: CT chest 7 pelvis 05/05/2018 Technique: Helical CT imaging performed of the abdomen and pelvis without the use of intravenous contrast. Sagittal and coronal reformats were obtained. One or more of the following individualized dose reduction techniques were utilized for this examination: 1. Automated exposure control 2. Adjustment of the mA and/or kV according to patient size 3. Use of iterative reconstruction technique. Findings: Inherently limited evaluation without intravenous contrast. Lower chest: The heart is normal size. There is a right chest wall port with tip terminating at the superior cavoatrial junction. There are coronary artery calcifications. There are new or increased small mediastinal lymph nodes, incompletely evaluated. There are 2 new pulmonary nodules along the minor fissure measuring 4 mm (image 10, series 2). There is a new 3 mm nodule in the anterior right upper lobe (image 6, series 2). There is a new 4 mm nodule in the right lower lobe (image 12, series 2). There is no new consolidative opacities in the posterior medial left lower lobe. Liver: Unremarkable noncontrast appearance of the liver. Gallbladder/Biliary Tree: Cholelithiasis. Pancreas: There is diffuse pancreatic atrophy. Spleen: Normal. Adrenal Glands: Normal. Kidneys/Ureters/Bladder: Kidneys are normal in size. No nephrolithiasis. There is new mild bilateral hydronephrosis and hydroureter. No obstructing calculus seen. There is new moderate bladder wall thickening, greatest anteriorly. Reproductive Organs: Enlarged, leiomyomatous uterus with multiple calcified fibroids, grossly unchanged. No adnexal mass. Stomach, small bowel, and colon: The stomach, small bowel, appendix, and colon are unremarkable. There is some soft tissue thickening in the region of the anus, not well evaluated and nonspecific. Vasculature: No aortic aneurysm. There is mild calcified aortoiliac atherosclerosis. There is an IVC filter in place. Lymph Nodes: No lymphadenopathy. A portacaval lymph node is slightly larger, now 1.1 cm short axis, previously 0.6 cm short axis. Peritoneum and retroperitoneum: No free fluid or free air. Bones: There are diffuse bony metastases, with worsened osseous destruction of the pelvis and multiple lumbar and thoracic vertebral bodies. New compression fracture of T8 with 30 percent height loss. There are old compression fractures at L1, L3, L4, and L5. Additional old compression fracture at T9. The L1, L4, L5 compression fractures have up to 50 percent vertebral body height loss. This has mildly increased at L4. No retropulsion of any fractures. There are multiple bilateral rib lesions and old or healing rib fractures. There is an increased or new soft tissue component along a right posterior ninth rib lesion. Miscellaneous: There is subcutaneous fat stranding in the lower anterior abdominal wall, related to edema or medication injections. Diffuse muscular at rophy in the pelvis and proximal thighs. A partially visualized 4.1 x 2.9 cm fat-containing intramuscular mass in the left proximal thigh is redemonstrated and likely a lipoma. IMPRESSION: 1. Worsened diffuse osseous metastatic disease with increased bony destruction of the pelvis and increased metastatic disease in the lumbar spine. There is a new compression fracture of T8 and multiple old compression fractures in the lower thoracic and lumbar spine. 2. There is a new soft tissue component along a right posterior ninth rib lesion. 3. Several new pulmonary nodules in the right lung base, nonspecific. New left lower lobe opacities, which could be pneumonia or atelectasis. 4. No acute abnormality of the bowel. There is questionable soft tissue thicken ing in the region of anus, which is nonspecific and not well evaluated by CT. Correlate with physical exam. 5. New mild bilateral hydronephrosis and hydroureter without obstructing calculus visualized. 6. New moderate wall thickening with bladder, greatest anteriorly. Underlying bladder mass or infection not excluded. 7. Enlarged, leiomyomatous uterus, unchanged. 8. Cholelithiasis. 9. A retrievable IVC filter is noted, and the referring physician is encouraged to ensure that a management plan for this filter is in place. If no such plan is present, referral to an interventional clinician on a non-emergent basis should be considered. VTE Prophylaxis Ordered VTE Prophylaxis Devices: Yes VTE Pharmacological Prophylaxi: No Assessment/Plan Assessment/Plan Acute blood loss anemia - due to GI loss and likely of chronic disease with metastatic cancer Rectal bleeding - seems hemorrhoidal, will treat, monitor Hypercalcemia - likely of malignancy, will aggressively hydrate, may need lasix and zoledronic acid, will consult nephrology IVON - vasomotor nephropathy likely due to hypercalcemia, will monitor renal function on IVF DM2 - sliding scale insulin HTN - cont home meds Metastatic breast cancer - worsened diffuse osseous metastatic disease with increased bony destruction of the pelvis and increased metastatic disease in the lumbar spine and T8 and 9th rib. She is asking for Palliative care referral Mild bilateral hydronephrosis and hydroureter - possibly due to bladder mass, will monitor UOP Unable to walk - likely right knee metastatic disease FEN - ADA diet PPX - IVC filter in place, SCDs while bleeding FULL CODE - wishes to discuss DNR/DNI and wants referral to palliative care Dispo - inpatient for above Justifications for Admission Other Justification GORDON HERRING MD October 23, 2021 18:58
[2021-10-23] MEDS ORDERED: IV NORMAL SALINE 1000ML BAG 1,000 ML IV ONE ×4 (19:00→20:45)
[2021-10-23] MEDS ORDERED: ACETAMINOPHEN 325 MG TABLET. PO PRN (20:15)
[2021-10-23] MEDS ORDERED: ONDANSETRON PF 4 MG/2 ML VIAL. IVP PRN (20:15)
[2021-10-23 20:40] VITALS: BP 133/44
[2021-10-23] MEDS: MORPHINE SULFATE 4 MG/ML INJ. IVP PRN (21:44)
[2021-10-23] MEDS ORDERED: DEXTROSE 50% 25 GM / 50ML DISP.SYRIN. IV PRN (21:45)
[2021-10-23] MEDS ORDERED: [UNRECOGNIZED DRUG - OTHER] RC PRN (21:45)
[2021-10-23] MEDS ORDERED: oxyCODONE IR 5 MG TABLET PO PRN (22:00)
[2021-10-23 23:00] VITALS: BP 124/48
[2021-10-24 03:00] VITALS: BP 121/49
[2021-10-24 04:24] LABS: BASO # 0.1 x10^3/uL (0.0-0.2); BASO % 1 % (0-3); EOS # 0.2 x10^3/uL (0.0-0.7); EOS % 4 % (0-3); HEMATOCRIT 24.5 % (36.0-47.0); HEMOGLOBIN 7.8 g/dL (12.0-15.5); LYMPH # 0.8 x10^3/uL (1.0-4.8); LYMPH % 13 % (24-48); MEAN CORPUSCULAR HEMOGLOBIN 28 pg (25-35); MEAN CORPUSCULAR HGB CONC 32 g/dL (31-37); MEAN CORPUSCULAR VOLUME 88 fL (79-100); MONO # 0.9 x10^3/uL (0.0-1.1); MONO % 15 % (0-9); NEUT # 4.1 x10^3/uL (1.8-7.7); NEUT % 67 % (31-73); PLATELET COUNT 201 x10^3/uL (140-400); RED CELL DISTRIBUTION WIDTH 19.2 % (11.5-14.5); WHITE BLOOD COUNT 6.2 x10^3/uL (4.0-11.0)
[2021-10-24 05:02] LABS: ALBUMIN 2.7 g/dL (3.4-5.0); ALBUMIN/GLOBULIN RATIO 0.5 (1.0-1.7); CALCIUM 11.4 mg/dL (8.5-10.1); CREATININE 1.7 mg/dL (0.6-1.0); GFR 28.8; POTASSIUM 4.6 mmol/L (3.5-5.1); TOTAL BILIRUBIN 0.2 mg/dL (0.2-1.0); TOTAL PROTEIN 7.8 g/dL (6.4-8.2)
[2021-10-24 07:00] VITALS: BP 122/48
[2021-10-24] MEDS: MORPHINE SULFATE 4 MG/ML INJ. IV/SQ PRN (08:50)
[2021-10-24] MEDS: DOCUSATE SODIUM 100 MG CAPSULE. PO SCH ×2 (09:00→21:21)
[2021-10-24] MEDS ORDERED: MAGNESIUM HYDROXIDE 2,400 MG/30 ML ORAL.SUSP. PO SCH ×2 (09:00→21:00)
--- NOTE | 2021-10-24 09:18 | PDOC2 ---
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 H/o breast cancer s/p mastectomy, chemotherapy, and radiation (currently not on treatment - stopped due to swelling in legs) w/ osseous metastatic disease. Question of vaginal vs rectal bleeding prior to arrival. H/o hemorrhoids w/ rectal pain and some bleeding - previously had hemorrhoids "tied off." Recently has "felt like I ate too much food with acid." No dysphagia, n/v, abd pain, melena, weight loss, or change in appetite. Alternating "diarrhea and constipation" - vaguely describes - takes MoM PRN. Last stooled on Saturday, can't remember what it was like. No previous EGD or colonoscopy. Denies GB, liver, pancreas, or PUD history. Cholelithiasis noted on imaging. 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 She talks extensively about medical history, other medical problems. Later on, spoke w/ nurse Ese Amaya at [facility] via phone who confirms hemorrhoid-type bleeding that is a chronic issue. Uses [facility]. Previous banding at [facility] on [address] Notes pt had concern that "the bleeding was more in the front than in the back" and wanted to go to the ER. PMH: PMH: HTN, DM, peripheral neuropathy, breast cancer, DVT, cellulitis right mastectomy and lymph node dissection, chemo/rad, bilateral cataract extraction.lens implant, tonsillectomy, bunionectomy, IVC filter, toe amputations FH: Family History: No pertinent hx Social History: Smoke: No ALCOHOL: none Drugs: None ROS: GEN: Denies fevers, chills, sweats HEENT: Denies blurred vision, sore throat CV: Denies chest pain RESP: Denies shortness of air, cough GI: Per HPI : Denies hematuria, dysuria ENDO: Denies weight changes NEURO: Denies confusion, dizziness MSK: Denies weakness, joint pain/swelling SKIN: Denies jaundice, pruritus Vitals: Vitals: Vital Signs Date Time Temp Pulse Resp B/P (MAP) Pulse Ox O2 Delivery O2 Flow Rate FiO2 10/24/21 08:50 18 98 Room Air 10/24/21 07:00 98.1 63 122/48 (72) 2.0 98.1 Labs: Labs: Laboratory Tests Test 10/23/21 13:30 10/23/21 14:35 10/23/21 14:50 10/23/21 15:20 Stool Occult Blood Positive (NEG) White Blood Count 7.5 x10^3/uL (4.0-11.0) Red Blood Count 2.97 x10^6/uL (3.50-5.40) Hemoglobin 8.2 g/dL (12.0-15.5) Hematocrit 25.7 % (36.0-47.0) Mean Corpuscular Volume 86 fL (79-100) Mean Corpuscular Hemoglobin 28 pg (25-35) Mean Corpuscular Hemoglobin Concent 32 g/dL (31-37) Red Cell Distribution Width 19.3 % (11.5-14.5) Platelet Count 216 x10^3/uL (140-400) Neutrophils (%) (Auto) 70 % (31-73) Lymphocytes (%) (Auto) 11 % (24-48) Monocytes (%) (Auto) 14 % (0-9) Eosinophils (%) (Auto) 3 % (0-3) Basophils (%) (Auto) 1 % (0-3) Neutrophils # (Auto) 5.3 x10^3/uL (1.8-7.7) Lymphocytes # (Auto) 0.9 x10^3/uL (1.0-4.8) Monocytes # (Auto) 1.0 x10^3/uL (0.0-1.1) Eosinophils # (Auto) 0.2 x10^3/uL (0.0-0.7) Basophils # (Auto) 0.1 x10^3/uL (0.0-0.2) Urine Collection Type Unknown Urine Color (Auto) Light orange Urine Turbidity Hazy Urine pH (Auto) 6.5 (<5.0-8.0) Urine Specific [place] 1.012 (1.000-1.030) Urine Protein (Auto) Negative mg/dL (Negative) Urine Glucose (Auto)(UA) Negative mg/dL (Negative) Urine Ketones (Auto) Negative mg/dL (Negative) Urine Blood (Auto) Large (Negative) Urine Nitrite Negative (Negative) Urine Bilirubin (Auto) Negative (Negative) Urine Urobilinogen (Auto) Normal mg/dL (Normal) Urine Leukocyte Esterase (Auto) Large (Negative) Urine RBC Field obscured /HPF (0-2) Urine WBC 20-40 /HPF (0-4) Urine Squamous Epithelial Cells Occ /LPF Urine Bacteria Moderate /HPF (0-FEW) Prothrombin Time 17.8 SEC (11.7-14.0) Prothromb Time International Ratio 1.5 (0.8-1.1) Activated Partial Thromboplast Time 34 SEC (24-38) Sodium Level 140 mmol/L (136-145) Potassium Level 4.3 mmol/L (3.5-5.1) Chloride Level 103 mmol/L (98-107) Carbon Dioxide Level 27 mmol/L (21-32) Anion Gap 10 (6-14) Blood Urea Nitrogen 50 mg/dL (7-20) Creatinine 1.7 mg/dL (0.6-1.0) Estimated GFR (Cockcroft-Gault) 28.8 BUN/Creatinine Ratio 29 (6-20) Glucose Level 101 mg/dL (70-99) Calcium Level 12.5 mg/dL (8.5-10.1) Total Bilirubin 0.2 mg/dL (0.2-1.0) Aspartate Amino Transf (AST/SGOT) 57 U/L (15-37) Alanine Aminotransferase (ALT/SGPT) 18 U/L (14-59) Alkaline Phosphatase 195 U/L (46-116) Total Protein 8.6 g/dL (6.4-8.2) Albumin 3.0 g/dL (3.4-5.0) Albumin/Globulin Ratio 0.5 (1.0-1.7) Test 10/24/21 03:21 10/24/21 03:40 10/24/21 08:51 Glucose (Fingerstick) 132 mg/dL (70-99) 172 mg/dL (70-99) White Blood Count 6.2 x10^3/uL (4.0-11.0) Red Blood Count 2.80 x10^6/uL (3.50-5.40) Hemoglobin 7.8 g/dL (12.0-15.5) Hematocrit 24.5 % (36.0-47.0) Mean Corpuscular Volume 88 fL (79-100) Mean Corpuscular Hemoglobin 28 pg (25-35) Mean Corpuscular Hemoglobin Concent 32 g/dL (31-37) Red Cell Distribution Width 19.2 % (11.5-14.5) Platelet Count 201 x10^3/uL (140-400) Neutrophils (%) (Auto) 67 % (31-73) Lymphocytes (%) (Auto) 13 % (24-48) Monocytes (%) (Auto) 15 % (0-9) Eosinophils (%) (Auto) 4 % (0-3) Basophils (%) (Auto) 1 % (0-3) Neutrophils # (Auto) 4.1 x10^3/uL (1.8-7.7) Lymphocytes # (Auto) 0.8 x10^3/uL (1.0-4.8) Monocytes # (Auto) 0.9 x10^3/uL (0.0-1.1) Eosinophils # (Auto) 0.2 x10^3/uL (0.0-0.7) Basophils # (Auto) 0.1 x10^3/uL (0.0-0.2) Sodium Level 142 mmol/L (136-145) Potassium Level 4.6 mmol/L (3.5-5.1) Chloride Level 105 mmol/L (98-107) Carbon Dioxide Level 30 mmol/L (21-32) Anion Gap 7 (6-14) Blood Urea Nitrogen 44 mg/dL (7-20) Creatinine 1.7 mg/dL (0.6-1.0) Estimated GFR (Cockcroft-Gault) 28.8 BUN/Creatinine Ratio 26 (6-20) Glucose Level 137 mg/dL (70-99) Calcium Level 11.4 mg/dL (8.5-10.1) Total Bilirubin 0.2 mg/dL (0.2-1.0) Aspartate Amino Transf (AST/SGOT) 46 U/L (15-37) Alanine Aminotransferase (ALT/SGPT) 16 U/L (14-59) Alkaline Phosphatase 176 U/L (46-116) Total Protein 7.8 g/dL (6.4-8.2) Albumin 2.7 g/dL (3.4-5.0) Albumin/Globulin Ratio 0.5 (1.0-1.7) Allergies: Coded Allergies: ibuprofen (Verified Allergy, Intermediate, 10/23/21) Medications: Current Medications Medications (Trade) Dose Ordered Sig/Kamala Route PRN Reason Start Time Stop Time Status Last Admin Dose Admin Morphine Sulfate (Morphine Sulfate) 4 mg PRN Q15MIN PRN IV/SQ PAIN GREATER THAN 3/10 10/23/21 13:45 10/24/21 13:44 10/24/21 08:50 Ondansetron HCl (Zofran) 4 mg 1X ONCE IVP 10/23/21 13:45 10/23/21 13:46 DC 10/23/21 15:56 Morphine Sulfate (Morphine Sulfate) 4 mg PRN Q2HR PRN IVP PAIN 10/23/21 20:15 10/25/21 20:14 10/23/21 21:44 Sodium Chloride 1,000 ml @ 125 mls/hr 1X ONCE IV 10/23/21 20:45 10/24/21 04:44 DC 10/23/21 21:44 Imaging: Imaging: CT A/P Findings: Inherently limited evaluation without intravenous contrast. Lower chest: The heart is normal size. There is a right chest wall port with tip terminating at the superior cavoatrial junction. There are coronary artery calcifications. There are new or increased small mediastinal lymph nodes, incompletely evaluated. There are 2 new pulmonary nodules along the minor fissure measuring 4 mm (image 10, series 2). There is a new 3 mm nodule in the anterior right upper lobe (image 6, series 2). There is a new 4 mm nodule in the right lower lobe (image 12, series 2). There is no new consolidative opacities in the posterior medial left lower lobe. Liver: Unremarkable noncontrast appearance of the liver. Gallbladder/Biliary Tree: Cholelithiasis. Pancreas: There is diffuse pancreatic atrophy. Spleen: Normal. Adrenal Glands: Normal. Kidneys/Ureters/Bladder: Kidneys are normal in size. No nephrolithiasis. There is new mild bilateral hydronephrosis and hydroureter. No obstructing calculus seen. There is new moderate bladder wall thickening, greatest anteriorly. Reproductive Organs: Enlarged, leiomyomatous uterus with multiple calcified fib roids, grossly unchanged. No adnexal mass. Stomach, small bowel, and colon: The stomach, small bowel, appendix, and colon are unremarkable. There is some soft tissue thickening in the region of the anus, not well evaluated and nonspecific. Vasculature: No aortic aneurysm. There is mild calcified aortoiliac atherosclerosis. There is an IVC filter in place. Lymph Nodes: No lymphadenopathy. A portacaval lymph node is slightly larger, now 1.1 cm short axis, previously 0.6 cm short axis. Peritoneum and retroperitoneum: No free fluid or free air. Bones: There are diffuse bony metastases, with worsened osseous destruction of the pelvis and multiple lumbar and thoracic vertebral bodies. New compression fracture of T8 with 30 percent height loss. There are old compression fractures at L1, L3, L4, and L5. Additional old compression fracture at T9. The L1, L4, L5 compression fractures have up to 50 percent vertebral body height loss. This has mildly increased at L4. No retropulsion of any fractures. There are multiple bilateral rib lesions and old or healing rib fractures. There is an increased or new soft tissue component along a right posterior ninth rib lesion. Miscellaneous: There is subcutaneous fat stranding in the lower anterior abdominal wall, related to edema or medication injections. Diffuse muscular atrophy in the pelvis and proximal thighs. A partially visualized 4.1 x 2.9 cm fat-containing intramuscular mass in the left proximal thigh is redemonstrated and likely a lipoma. IMPRESSION: 1. Worsened diffuse osseous metastatic disease with increased bony destruction of the pelvis and increased metastatic disease in the lumbar spine. There is a new compression fracture of T8 and multiple old compression fractures in the lower thoracic and lumbar spine. 2. There is a new soft tissue component along a right posterior ninth rib lesion. 3. Several new pulmonary nodules in the right lung base, nonspecific. New left lower lobe opacities, which could be pneumonia or atelectasis. 4. No acute abnormality of the bowel. There is questionable soft tissue thickening in the region of anus, which is nonspecific and not well evaluated by CT. Correlate with physical exam. 5. New mild bilateral hydronephrosis and hydroureter without obstructing calculus visualized. 6. New moderate wall thickening with bladder, greatest anteriorly. Underlying bladder mass or infection not excluded. 7. Enlarged, leiomyomatous uterus, unchanged. 8. Cholelithiasis. 9. A retrievable IVC filter is noted, and the referring physician is encouraged to ensure that a management plan for this filter is in place. If no such plan is present, referral to an interventional clinician on a non-emergent basis should be considered. PE: GEN: NAD - nurse present during interview/exam - helped pt roll to side for rectal exam - quite difficult for pt HEENT: Atraumatic, PERRL LUNGS: CTAB HEART: RRR ABD: NABS, S/ND/NT OTHER: non-bleeding large external hemorrhoids NEURO/PSYCH: A & O 3 A/P: A/P: Metastatic breast cancer - interval imaging shows worsening osseous disease and new pulmonary nodules Anemia, +Hemoccult, rectal bleeding Hypercalcemia IVON, new mild bilateral hydronephrosis and hydroureter, ?UTI ?reflux - recent onset CRC screen - none? H/o hemorrhoids/banding Cholelithiasis - incidental finding on CT H/o DVT w/ ICV filter on Xarelto and ASA -- From GI standpoint, monitor for bleeding and monitor Hgb. Poor candidate for aggressive intervention considering metastatic disease and limited mobility. Note plans for possible palliative care discussion. YUMIKO CONTRERAS October 24, 2021 09:18
--- NOTE | 2021-10-24 09:27 | PDOC2 ---
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 Over the past 2 days she has started to notice clots as well. She has rectal bleeding from hemorrhoids and initially told ED she had vaginal bleeding. She is being followed outpatient for metastatic breast cancer with bony mets, was unable to tolerate gemcitabine therapy and quit this last year due to swelling of her legs. She now has become wheelchair bound, notes her right knee is "locking up" all the time recently. Denies Fever, chills . C/O Fatigue , decreased appetite.No Cough, Hemoptysis , Shortness of breath, No Chest Pain. No Nausea, No Vomiting, No Abdominal Pain, No Diarrhea, No Dysuria, No FrequencY OR Hematuria, c/o Urgency . States she is not aware of Dx of CKD. Uses Occasional NSAID's for pain Past Medical History Cardiovascular: HTN Heme/Onc: Cancer, Other Endocrine: Diabetes Past Surgical History Past Surgical History: Mastectomy, Hysterectomy Family History Family History: Coronary Artery Disease, Diabetes, Other Social History No ALCOHOL: none Lives: Alone Current Problem List Problem List Problems Medical Problems: (1) Abnormal uterine bleeding Status: Acute (2) Anemia Status: Acute (3) Compression fracture of T8 vertebra Status: Acute (4) Hemorrhoids Status: Acute Current Medications Current Medications Current Medications Morphine Sulfate (Morphine Sulfate) 4 mg PRN Q15MIN PRN IV/SQ PAIN GREATER THAN 3/10 Last administered on 10/24/21at 08:50; Start 10/23/21 at 13:45; Stop 10/24/21 at 13:44 Ondansetron HCl (Zofran) 4 mg 1X ONCE IVP Last administered on 10/23/21at 15:56; Start 10/23/21 at 13:45; Stop 10/23/21 at 13:46; Status DC Iohexol (Omnipaque 300 Mg/ml) 75 ml 1X ONCE IV ; Start 10/23/21 at 13:45; Stop 10/23/21 at 13:46; Status DC Info (CONTRAST GIVEN -- Rx MONITORING) 1 each PRN DAILY PRN MC SEE COMMENTS; Start 10/23/21 at 13:45; Stop 10/25/21 at 13:44 Sodium Chloride 1,000 ml @ 1,000 mls/hr 1X ONCE IV ; Start 10/23/21 at 19:00; Stop 10/23/21 at 19:59; Status DC Sodium Chloride 1,000 ml @ 1,000 mls/hr 1X ONCE IV ; Start 10/23/21 at 19:00; Stop 10/23/21 at 19:59; Status DC Sodium Chloride 1,000 ml @ 125 mls/hr 1X ONCE IV ; Start 10/23/21 at 19:00; Stop 10/24/21 at 02:59; Status DC Ondansetron HCl (Zofran) 4 mg PRN Q8HRS PRN IVP NAUSEA/VOMITING; Start 10/23/21 at 20:15; Stop 10/24/21 at 20:14 Morphine Sulfate (Morphine Sulfate) 4 mg PRN Q2HR PRN IVP PAIN Last administered on 10/23/21at 21:44; Start 10/23/21 at 20:15; Stop 10/25/21 at 20:14 Acetaminophen (Tylenol) 650 mg PRN Q4HRS PRN PO FEVER > 100.3'F; Start 10/23/21 at 20:15; Stop 10/24/21 at 20:14 Sodium Chloride 1,000 ml @ 125 mls/hr 1X ONCE IV Last administered on 10/23/21at 21:44; Start 10/23/21 at 20:45; Stop 10/24/21 at 04:44; Status DC Hydrocortisone/ Pramoxine (Proctofoam-Hc Foam) 1 juvencio PRN QID PRN RC RECTAL PAIN; Start 10/23/21 at 21:45 Docusate Sodium (Colace) 100 mg BID PO ; Start 10/24/21 at 09:00 Magnesium Hydroxide (Milk Of Magnesia) 400 mg DAILY PO ; Start 10/24/21 at 09:00 Insulin Human Lispro (HumaLOG) 0-9 UNITS TIDACHC SQ ; Start 10/24/21 at 07:30 Dextrose (Dextrose 50%-Water Syringe) 12.5 gm PRN Q15MIN PRN IV SEE COMMENTS; Start 10/23/21 at 21:45 Oxycodone HCl (Roxicodone) 5 mg PRN Q6HRS PRN PO SEVERE PAIN 7-10; Start 10/23/21 at 22:00 Active Scripts Active Reported Imodium A-D (Loperamide HCl) 2 Mg Capsule 2 Mg PO PRN Align (Bifidobacterium Infantis) 4 Mg Capsule 4 Mg PO DAILY Acetaminophen 500 Mg Tablet 500 Mg PO TID Milk Of Magnesia (Magnesium Hydroxide) 400 Mg/5 Ml Oral.susp 400 Mg PO PRN Zofran (Ondansetron Hcl) 4 Mg Tablet 1 Tab PO Q6HRS Lipitor (Atorvastatin Calcium) 40 Mg Tablet 1 Tab PO QHS Colace (Docusate Sodium) 100 Mg Capsule 100 Mg PO DAILY Preservision Areds Softgel (Vit A/Vit C/Vit E/Zinc/Copper) 1 Each Capsule 1 Each PO 1X Aspirin 81 Mg Tab.chew 1 Tab PO DAILY Align (Bifidobacterium Infantis) 4 Mg Capsule 4 Mg PO DAILY [place] 5-325 Tablet (Acetaminophen/Hydrocodone Bitart) 1 Each Tablet 1 Tab PO PRN Q6HRS PRN Humalog (Insulin Lispro) 100 Unit/1 Ml Insuln.pen 24 Unit SQ BID Levemir (Insulin Detemir) 100 Unit/1 Ml Vial 42 Unit SQ DAILYWBKFT Lipitor (Atorvastatin Calcium) 40 Mg Tablet 40 Mg PO HS Colace (Docusate Sodium) 100 Mg Capsule 100 Mg PO 2TABS PO DAILY Potassium Chloride 20 Meq Tab.er.prt 20 Meq PO 2TABS(40MEQ) BID Preservision Areds Softgel (Vit A/Vit C/Vit E/Zinc/Copper) 1 Each Capsule 1 Each PO DAILY Xarelto (Rivaroxaban) 20 Mg Tablet 20 Mg PO DAILY Levemir (Insulin Detemir) 100 Unit/1 Ml Vial 65 Unit SQ HS Furosemide 40 Mg Tablet 20 Mg PO BID Allergies Allergies: Coded Allergies: ibuprofen (Verified Allergy, Intermediate, 10/23/21) ROS Review of System As per HPI, rest of the ROS is negative Physical Exam Physical Exam General: NAD HEENT: Atraumatic, PERRLA, EOMI, Mucous membr. moist/pink Neck Supple Lungs: Clear to auscultation,Non labored Heart: S1S2, RRR, no thrills, no rubs, no gallops, no murmurs Abdomen: Normal bowel sounds, Soft, No tenderness, No hepatosplenomegaly, No masses Extremities: No clubbing, No cyanosis, No edema, Skin: No rashes, No Neuro: Grossly normal Psych/Mental Status: Cooperative No Flank or SP tenderness Vital Signs Vital Signs Date Time Temp Pulse Resp B/P (MAP) Pulse Ox O2 Delivery O2 Flow Rate FiO2 10/24/21 08:50 18 98 Room Air 10/24/21 07:00 98.1 63 122/48 (72) 2.0 98.1 Assessment & Plan IVON vs CKD - Vasomotor, No labs available since 2019 (Cr was normal) , Dehydration , UTI . Stable renal function. Supportive care, maintain hydration, Avoid Nephrotoxins, Strict I/O (UOP not recorded) UTI- UA cw UTI Hydronephrosis - new mild bilateral hydronephrosis and hydroureter. No obstructing calculus seen. New moderate bladder wall thickening, greatest anteriorly.Defer to Urology HyperCalcemia - 2/2 Dehydration vs Malignancy Ca trending down, Contiue IVF, Monitor closely, strict I/O . Consider Zoledronic acid if stays elevated . Consult Oncology Acute blood loss anemia - due to GI loss and likely of chronic disease with metastatic cancer. Management per Oncology Rectal bleeding -Hx of hemorrhoids HTN - cont home meds DM2 Metastatic breast cancer - worsened diffuse osseous metastatic disease with increased bony destruction of the pelvis and increased metastatic disease in the lumbar spine and T8 and 9th rib. She is asking for Palliative care referral Labs Labs Laboratory Tests Test 10/23/21 13:30 10/23/21 14:35 10/23/21 14:50 10/23/21 15:20 Stool Occult Blood Positive (NEG) White Blood Count 7.5 x10^3/uL (4.0-11.0) Red Blood Count 2.97 x10^6/uL (3.50-5.40) Hemoglobin 8.2 g/dL (12.0-15.5) Hematocrit 25.7 % (36.0-47.0) Mean Corpuscular Volume 86 fL (79-100) Mean Corpuscular Hemoglobin 28 pg (25-35) Mean Corpuscular Hemoglobin Concent 32 g/dL (31-37) Red Cell Distribution Width 19.3 % (11.5-14.5) Platelet Count 216 x10^3/uL (140-400) Neutrophils (%) (Auto) 70 % (31-73) Lymphocytes (%) (Auto) 11 % (24-48) Monocytes (%) (Auto) 14 % (0-9) Eosinophils (%) (Auto) 3 % (0-3) Basophils (%) (Auto) 1 % (0-3) Neutrophils # (Auto) 5.3 x10^3/uL (1.8-7.7) Lymphocytes # (Auto) 0.9 x10^3/uL (1.0-4.8) Monocytes # (Auto) 1.0 x10^3/uL (0.0-1.1) Eosinophils # (Auto) 0.2 x10^3/uL (0.0-0.7) Basophils # (Auto) 0.1 x10^3/uL (0.0-0.2) Urine Collection Type Unknown Urine Color (Auto) Light orange Urine Turbidity Hazy Urine pH (Auto) 6.5 (<5.0-8.0) Urine Specific [place] 1.012 (1.000-1.030) Urine Protein (Auto) Negative mg/dL (Negative) Urine Glucose (Auto)(UA) Negative mg/dL (Negative) Urine Ketones (Auto) Negative mg/dL (Negative) Urine Blood (Auto) Large (Negative) Urine Nitrite Negative (Negative) Urine Bilirubin (Auto) Negative (Negative) Urine Urobilinogen (Auto) Normal mg/dL (Normal) Urine Leukocyte Esterase (Auto) Large (Negative) Urine RBC Field obscured /HPF (0-2) Urine WBC 20-40 /HPF (0-4) Urine Squamous Epithelial Cells Occ /LPF Urine Bacteria Moderate /HPF (0-FEW) Prothrombin Time 17.8 SEC (11.7-14.0) Prothromb Time International Ratio 1.5 (0.8-1.1) Activated Partial Thromboplast Time 34 SEC (24-38) Sodium Level 140 mmol/L (136-145) Potassium Level 4.3 mmol/L (3.5-5.1) Chloride Level 103 mmol/L (98-107) Carbon Dioxide Level 27 mmol/L (21-32) Anion Gap 10 (6-14) Blood Urea Nitrogen 50 mg/dL (7-20) Creatinine 1.7 mg/dL (0.6-1.0) Estimated GFR (Cockcroft-Gault) 28.8 BUN/Creatinine Ratio 29 (6-20) Glucose Level 101 mg/dL (70-99) Calcium Level 12.5 mg/dL (8.5-10.1) Total Bilirubin 0.2 mg/dL (0.2-1.0) Aspartate Amino Transf (AST/SGOT) 57 U/L (15-37) Alanine Aminotransferase (ALT/SGPT) 18 U/L (14-59) Alkaline Phosphatase 195 U/L (46-116) Total Protein 8.6 g/dL (6.4-8.2) Albumin 3.0 g/dL (3.4-5.0) Albumin/Globulin Ratio 0.5 (1.0-1.7) Test 10/24/21 03:21 10/24/21 03:40 10/24/21 08:51 Glucose (Fingerstick) 132 mg/dL (70-99) 172 mg/dL (70-99) White Blood Count 6.2 x10^3/uL (4.0-11.0) Red Blood Count 2.80 x10^6/uL (3.50-5.40) Hemoglobin 7.8 g/dL (12.0-15.5) Hematocrit 24.5 % (36.0-47.0) Mean Corpuscular Volume 88 fL (79-100) Mean Corpuscular Hemoglobin 28 pg (25-35) Mean Corpuscular Hemoglobin Concent 32 g/dL (31-37) Red Cell Distribution Width 19.2 % (11.5-14.5) Platelet Count 201 x10^3/uL (140-400) Neutrophils (%) (Auto) 67 % (31-73) Lymphocytes (%) (Auto) 13 % (24-48) Monocytes (%) (Auto) 15 % (0-9) Eosinophils (%) (Auto) 4 % (0-3) Basophils (%) (Auto) 1 % (0-3) Neutrophils # (Auto) 4.1 x10^3/uL (1.8-7.7) Lymphocytes # (Auto) 0.8 x10^3/uL (1.0-4.8) Monocytes # (Auto) 0.9 x10^3/uL (0.0-1.1) Eosinophils # (Auto) 0.2 x10^3/uL (0.0-0.7) Basophils # (Auto) 0.1 x10^3/uL (0.0-0.2) Sodium Level 142 mmol/L (136-145) Potassium Level 4.6 mmol/L (3.5-5.1) Chloride Level 105 mmol/L (98-107) Carbon Dioxide Level 30 mmol/L (21-32) Anion Gap 7 (6-14) Blood Urea Nitrogen 44 mg/dL (7-20) Creatinine 1.7 mg/dL (0.6-1.0) Estimated GFR (Cockcroft-Gault) 28.8 BUN/Creatinine Ratio 26 (6-20) Glucose Level 137 mg/dL (70-99) Calcium Level 11.4 mg/dL (8.5-10.1) Total Bilirubin 0.2 mg/dL (0.2-1.0) Aspartate Amino Transf (AST/SGOT) 46 U/L (15-37) Alanine Aminotransferase (ALT/SGPT) 16 U/L (14-59) Alkaline Phosphatase 176 U/L (46-116) Total Protein 7.8 g/dL (6.4-8.2) Albumin 2.7 g/dL (3.4-5.0) Albumin/Globulin Ratio 0.5 (1.0-1.7) Laboratory Tests Test 10/23/21 13:30 10/23/21 14:35 10/23/21 14:50 10/23/21 15:20 Stool Occult Blood Positive (NEG) White Blood Count 7.5 x10^3/uL (4.0-11.0) Red Blood Count 2.97 x10^6/uL (3.50-5.40) Hemoglobin 8.2 g/dL (12.0-15.5) Hematocrit 25.7 % (36.0-47.0) Mean Corpuscular Volume 86 fL (79-100) Mean Corpuscular Hemoglobin 28 pg (25-35) Mean Corpuscular Hemoglobin Concent 32 g/dL (31-37) Red Cell Distribution Width 19.3 % (11.5-14.5) Platelet Count 216 x10^3/uL (140-400) Neutrophils (%) (Auto) 70 % (31-73) Lymphocytes (%) (Auto) 11 % (24-48) Monocytes (%) (Auto) 14 % (0-9) Eosinophils (%) (Auto) 3 % (0-3) Basophils (%) (Auto) 1 % (0-3) Neutrophils # (Auto) 5.3 x10^3/uL (1.8-7.7) Lymphocytes # (Auto) 0.9 x10^3/uL (1.0-4.8) Monocytes # (Auto) 1.0 x10^3/uL (0.0-1.1) Eosinophils # (Auto) 0.2 x10^3/uL (0.0-0.7) Basophils # (Auto) 0.1 x10^3/uL (0.0-0.2) Urine Collection Type Unknown Urine Color (Auto) Light orange Urine Turbidity Hazy Urine pH (Auto) 6.5 (<5.0-8.0) Urine Specific [place] 1.012 (1.000-1.030) Urine Protein (Auto) Negative mg/dL (Negative) Urine Glucose (Auto)(UA) Negative mg/dL (Negative) Urine Ketones (Auto) Negative mg/dL (Negative) Urine Blood (Auto) Large (Negative) Urine Nitrite Negative (Negative) Urine Bilirubin (Auto) Negative (Negative) Urine Urobilinogen (Auto) Normal mg/dL (Normal) Urine Leukocyte Esterase (Auto) Large (Negative) Urine RBC Field obscured /HPF (0-2) Urine WBC 20-40 /HPF (0-4) Urine Squamous Epithelial Cells Occ /LPF Urine Bacteria Moderate /HPF (0-FEW) Prothrombin Time 17.8 SEC (11.7-14.0) Prothromb Time International Ratio 1.5 (0.8-1.1) Activated Partial Thromboplast Time 34 SEC (24-38) Sodium Level 140 mmol/L (136-145) Potassium Level 4.3 mmol/L (3.5-5.1) Chloride Level 103 mmol/L (98-107) Carbon Dioxide Level 27 mmol/L (21-32) Anion Gap 10 (6-14) Blood Urea Nitrogen 50 mg/dL (7-20) Creatinine 1.7 mg/dL (0.6-1.0) Estimated GFR (Cockcroft-Gault) 28.8 BUN/Creatinine Ratio 29 (6-20) Glucose Level 101 mg/dL (70-99) Calcium Level 12.5 mg/dL (8.5-10.1) Total Bilirubin 0.2 mg/dL (0.2-1.0) Aspartate Amino Transf (AST/SGOT) 57 U/L (15-37) Alanine Aminotransferase (ALT/SGPT) 18 U/L (14-59) Alkaline Phosphatase 195 U/L (46-116) Total Protein 8.6 g/dL (6.4-8.2) Albumin 3.0 g/dL (3.4-5.0) Albumin/Globulin Ratio 0.5 (1.0-1.7) Test 10/24/21 03:21 10/24/21 03:40 10/24/21 08:51 Glucose (Fingerstick) 132 mg/dL (70-99) 172 mg/dL (70-99) White Blood Count 6.2 x10^3/uL (4.0-11.0) Red Blood Count 2.80 x10^6/uL (3.50-5.40) Hemoglobin 7.8 g/dL (12.0-15.5) Hematocrit 24.5 % (36.0-47.0) Mean Corpuscular Volume 88 fL (79-100) Mean Corpuscular Hemoglobin 28 pg (25-35) Mean Corpuscular Hemoglobin Concent 32 g/dL (31-37) Red Cell Distribution Width 19.2 % (11.5-14.5) Platelet Count 201 x10^3/uL (140-400) Neutrophils (%) (Auto) 67 % (31-73) Lymphocytes (%) (Auto) 13 % (24-48) Monocytes (%) (Auto) 15 % (0-9) Eosinophils (%) (Auto) 4 % (0-3) Basophils (%) (Auto) 1 % (0-3) Neutrophils # (Auto) 4.1 x10^3/uL (1.8-7.7) Lymphocytes # (Auto) 0.8 x10^3/uL (1.0-4.8) Monocytes # (Auto) 0.9 x10^3/uL (0.0-1.1) Eosinophils # (Auto) 0.2 x10^3/uL (0.0-0.7) Basophils # (Auto) 0.1 x10^3/uL (0.0-0.2) Sodium Level 142 mmol/L (136-145) Potassium Level 4.6 mmol/L (3.5-5.1) Chloride Level 105 mmol/L (98-107) Carbon Dioxide Level 30 mmol/L (21-32) Anion Gap 7 (6-14) Blood Urea Nitrogen 44 mg/dL (7-20) Creatinine 1.7 mg/dL (0.6-1.0) Estimated GFR (Cockcroft-Gault) 28.8 BUN/Creatinine Ratio 26 (6-20) Glucose Level 137 mg/dL (70-99) Calcium Level 11.4 mg/dL (8.5-10.1) Total Bilirubin 0.2 mg/dL (0.2-1.0) Aspartate Amino Transf (AST/SGOT) 46 U/L (15-37) Alanine Aminotransferase (ALT/SGPT) 16 U/L (14-59) Alkaline Phosphatase 176 U/L (46-116) Total Protein 7.8 g/dL (6.4-8.2) Albumin 2.7 g/dL (3.4-5.0) Albumin/Globulin Ratio 0.5 (1.0-1.7) Review All relevant outside records, renal labs, imaging studies, telemetry/EKG's were reviewed. Images Images CT abdomen/pelvis without intravenous contrast Indication: Rectal and vaginal bleeding, history of metastatic breast cancer Comparison: CT chest 7 pelvis 05/05/2018 Technique: Helical CT imaging performed of the abdomen and pelvis without the use of intravenous contrast. Sagittal and coronal reformats were obtained. One or more of the following individualized dose reduction techniques were utilized for this examination: 1. Automated exposure control 2. Adjustment of the mA and/or kV according to patient size 3. Use of iterative reconstruction technique. Findings: Inherently limited evaluation without intravenous contrast. Lower chest: The heart is normal size. There is a right chest wall port with tip terminating at the superior cavoatrial junction. There are coronary artery calcifications. There are new or increased small mediastinal lymph nodes, incompletely evaluated. There are 2 new pulmonary nodules along the minor fissure measuring 4 mm (image 10, series 2). There is a new 3 mm nodule in the anterior right upper lobe (image 6, series 2). There is a new 4 mm nodule in the right lower lobe (image 12, series 2). There is no new consolidative opacities in the posterior medial left lower lobe. Liver: Unremarkable noncontrast appearance of the liver. Gallbladder/Biliary Tree: Cholelithiasis. Pancreas: There is diffuse pancreatic atrophy. Spleen: Normal. Adrenal Glands: Normal. Kidneys/Ureters/Bladder: Kidneys are normal in size. No nephrolithiasis. There is new mild bilateral hydronephrosis and hydroureter. No obstructing calculus seen. There is new moderate bladder wall thickening, greatest anteriorly. Reproductive Organs: Enlarged, leiomyomatous uterus with multiple calcified fibroids, grossly unchanged. No adnexal mass. Stomach, small bowel, and colon: The stomach, small bowel, appendix, and colon are unremarkable. There is some soft tissue thickening in the region of the anus, not well evaluated and nonspecific. Vasculature: No aortic aneurysm. There is mild calcified aortoiliac atherosclerosis. There is an IVC filter in place. Lymph Nodes: No lymphadenopathy. A portacaval lymph node is slightly larger, now 1.1 cm short axis, previously 0.6 cm short axis. Peritoneum and retroperitoneum: No free fluid or free air. Bones: There are diffuse bony metastases, with worsened osseous destruction of the pelvis and multiple lumbar and thoracic vertebral bodies. New compression fracture of T8 with 30 percent height loss. There are old compression fractures at L1, L3, L4, and L5. Additional old compression fracture at T9. The L1, L4, L5 compression fractures have up to 50 percent vertebral body height loss. This has mildly increased at L4. No retropulsion of any fractures. There are multiple bilateral rib lesions and old or healing rib fractures. There is an increased or new soft tissue component along a right posterior ninth rib lesion. Miscellaneous: There is subcutaneous fat stranding in the lower anterior abdominal wall, related to edema or medication injections. Diffuse muscular at rophy in the pelvis and proximal thighs. A partially visualized 4.1 x 2.9 cm fat-containing intramuscular mass in the left proximal thigh is redemonstrated and likely a lipoma. IMPRESSION: 1. Worsened diffuse osseous metastatic disease with increased bony destruction of the pelvis and increased metastatic disease in the lumbar spine. There is a new compression fracture of T8 and multiple old compression fractures in the lower thoracic and lumbar spine. 2. There is a new soft tissue component along a right posterior ninth rib lesion. 3. Several new pulmonary nodules in the right lung base, nonspecific. New left lower lobe opacities, which could be pneumonia or atelectasis. 4. No acute abnormality of the bowel. There is questionable soft tissue thicken ing in the region of anus, which is nonspecific and not well evaluated by CT. Correlate with physical exam. 5. New mild bilateral hydronephrosis and hydroureter without obstructing calculus visualized. 6. New moderate wall thickening with bladder, greatest anteriorly. Underlying bladder mass or infection not excluded. 7. Enlarged, leiomyomatous uterus, unchanged. 8. Cholelithiasis. 9. A retrievable IVC filter is noted, and the referring physician is encouraged to ensure that a management plan for this filter is in place. If no such plan is present, referral to an interventional clinician on a non-emergent basis should be considered. CHEN RBOIN MD October 24, 2021 09:26
[2021-10-24] MEDS: INSULIN LISPRO 300 UNITS/3 ML VIAL. SQ SCH ×4 (09:29→21:31)
[2021-10-24 11:00] VITALS: BP 117/42
--- NOTE | 2021-10-24 11:33 | PDOC2 ---
MOLLY RUDOLPH DIRECTOR OF ASSESSING 10/24/21 1133: CONSULT Date of Consult Date of Consult DATE: 10/24/21 TIME: 11:26 Reason for Consult Reason for Consult: hemorrhoids Referring Physician Referring Physician: ER Identification/Chief Complaint Chief Complaint rectal/vaginal bleeding Source Source: Chart review, Patient History of Present Illness Reason for Visit: history of breast cancer--mastectomy, chemotherapy, radiation, metastatic disease. Hx of hemorrhoids and banding, at [facility], she says about 4-6 weeks ago She was admitted for possible vaginal and rectal bleeding from records chronic issues with hemorrhoids and bleeding Past Medical History Cardiovascular: HTN Heme/Onc: Cancer, Other Endocrine: Diabetes Past Surgical History Past Surgical History: Mastectomy, Hysterectomy Family History Family History: Coronary Artery Disease, Diabetes, Other Social History No ALCOHOL: none Drugs: None Lives: Alone Current Problem List Problem List Problems Medical Problems: (1) Abnormal uterine bleeding Status: Acute (2) Anemia Status: Acute (3) Compression fracture of T8 vertebra Status: Acute (4) Hemorrhoids Status: Acute Current Medications Current Medications Current Medications Morphine Sulfate (Morphine Sulfate) 4 mg PRN Q15MIN PRN IV/SQ PAIN GREATER THAN 3/10 Last administered on 10/24/21at 08:50; Start 10/23/21 at 13:45; Stop 10/24/21 at 13:44 Ondansetron HCl (Zofran) 4 mg 1X ONCE IVP Last administered on 10/23/21at 15:56; Start 10/23/21 at 13:45; Stop 10/23/21 at 13:46; Status DC Iohexol (Omnipaque 300 Mg/ml) 75 ml 1X ONCE IV ; Start 10/23/21 at 13:45; Stop 10/23/21 at 13:46; Status DC Info (CONTRAST GIVEN -- Rx MONITORING) 1 each PRN DAILY PRN MC SEE COMMENTS; Start 10/23/21 at 13:45; Stop 10/25/21 at 13:44 Sodium Chloride 1,000 ml @ 1,000 mls/hr 1X ONCE IV ; Start 10/23/21 at 19:00; Stop 10/23/21 at 19:59; Status DC Sodium Chloride 1,000 ml @ 1,000 mls/hr 1X ONCE IV ; Start 10/23/21 at 19:00; Stop 10/23/21 at 19:59; Status DC Sodium Chloride 1,000 ml @ 125 mls/hr 1X ONCE IV ; Start 10/23/21 at 19:00; Stop 10/24/21 at 02:59; Status DC Ondansetron HCl (Zofran) 4 mg PRN Q8HRS PRN IVP NAUSEA/VOMITING; Start 10/23/21 at 20:15; Stop 10/24/21 at 20:14 Morphine Sulfate (Morphine Sulfate) 4 mg PRN Q2HR PRN IVP PAIN Last administered on 10/23/21at 21:44; Start 10/23/21 at 20:15; Stop 10/25/21 at 20:14 Acetaminophen (Tylenol) 650 mg PRN Q4HRS PRN PO FEVER > 100.3'F; Start 10/23/21 at 20:15; Stop 10/24/21 at 20:14 Sodium Chloride 1,000 ml @ 125 mls/hr 1X ONCE IV Last administered on 10/23/21at 21:44; Start 10/23/21 at 20:45; Stop 10/24/21 at 04:44; Status DC Hydrocortisone/ Pramoxine (Proctofoam-Hc Foam) 1 juvencio PRN QID PRN RC RECTAL PAIN; Start 10/23/21 at 21:45 Docusate Sodium (Colace) 100 mg BID PO ; Start 10/24/21 at 09:00 Magnesium Hydroxide (Milk Of Magnesia) 400 mg DAILY PO ; Start 10/24/21 at 09:00 Insulin Human Lispro (HumaLOG) 0-9 UNITS TIDACHC SQ Last administered on 10/24/21at 09:29; Start 10/24/21 at 07:30 Dextrose (Dextrose 50%-Water Syringe) 12.5 gm PRN Q15MIN PRN IV SEE COMMENTS; Start 10/23/21 at 21:45 Oxycodone HCl (Roxicodone) 5 mg PRN Q6HRS PRN PO SEVERE PAIN 7-10; Start 10/23/21 at 22:00 Pantoprazole Sodium (Protonix) 40 mg DAILYAC PO ; Start 10/24/21 at 11:30 Active Scripts Active Reported Imodium A-D (Loperamide HCl) 2 Mg Capsule 2 Mg PO PRN Align (Bifidobacterium Infantis) 4 Mg Capsule 4 Mg PO DAILY Acetaminophen 500 Mg Tablet 500 Mg PO TID Milk Of Magnesia (Magnesium Hydroxide) 400 Mg/5 Ml Oral.susp 400 Mg PO PRN Zofran (Ondansetron Hcl) 4 Mg Tablet 1 Tab PO Q6HRS Lipitor (Atorvastatin Calcium) 40 Mg Tablet 1 Tab PO QHS Colace (Docusate Sodium) 100 Mg Capsule 100 Mg PO DAILY Preservision Areds Softgel (Vit A/Vit C/Vit E/Zinc/Copper) 1 Each Capsule 1 Each PO 1X Aspirin 81 Mg Tab.chew 1 Tab PO DAILY Align (Bifidobacterium Infantis) 4 Mg Capsule 4 Mg PO DAILY [place] 5-325 Tablet (Acetaminophen/Hydrocodone Bitart) 1 Each Tablet 1 Tab PO PRN Q6HRS PRN Humalog (Insulin Lispro) 100 Unit/1 Ml Insuln.pen 24 Unit SQ BID Levemir (Insulin Detemir) 100 Unit/1 Ml Vial 42 Unit SQ DAILYWBKFT Lipitor (Atorvastatin Calcium) 40 Mg Tablet 40 Mg PO HS Colace (Docusate Sodium) 100 Mg Capsule 100 Mg PO 2TABS PO DAILY Potassium Chloride 20 Meq Tab.er.prt 20 Meq PO 2TABS(40MEQ) BID Preservision Areds Softgel (Vit A/Vit C/Vit E/Zinc/Copper) 1 Each Capsule 1 Each PO DAILY Xarelto (Rivaroxaban) 20 Mg Tablet 20 Mg PO DAILY Levemir (Insulin Detemir) 100 Unit/1 Ml Vial 65 Unit SQ HS Furosemide 40 Mg Tablet 20 Mg PO BID Allergies Allergies: Coded Allergies: ibuprofen (Verified Allergy, Intermediate, 10/23/21) Physical Exam General: Cooperative, No acute distress HEENT: Atraumatic, Mucous membr. moist/pink Lungs: Clear to auscultation, Normal air movement Heart: Regular rate, Normal S1, Normal S2 Abdomen: Soft, No tenderness Extremities: No clubbing, No cyanosis Skin: No rashes, No breakdown Neuro: Normal speech, Sensation intact Psych/Mental Status: Mental status NL, Mood NL MUSCULOSKELETAL: No deformity, No swelling Vitals VITALS Vital Signs Date Time Temp Pulse Resp B/P (MAP) Pulse Ox O2 Delivery O2 Flow Rate FiO2 10/24/21 08:50 18 98 Room Air 10/24/21 07:00 98.1 63 122/48 (72) 2.0 98.1 Labs Labs Laboratory Tests Test 10/23/21 13:30 10/23/21 14:35 10/23/21 14:50 10/23/21 15:20 Stool Occult Blood Positive (NEG) White Blood Count 7.5 x10^3/uL (4.0-11.0) Red Blood Count 2.97 x10^6/uL (3.50-5.40) Hemoglobin 8.2 g/dL (12.0-15.5) Hematocrit 25.7 % (36.0-47.0) Mean Corpuscular Volume 86 fL (79-100) Mean Corpuscular Hemoglobin 28 pg (25-35) Mean Corpuscular Hemoglobin Concent 32 g/dL (31-37) Red Cell Distribution Width 19.3 % (11.5-14.5) Platelet Count 216 x10^3/uL (140-400) Neutrophils (%) (Auto) 70 % (31-73) Lymphocytes (%) (Auto) 11 % (24-48) Monocytes (%) (Auto) 14 % (0-9) Eosinophils (%) (Auto) 3 % (0-3) Basophils (%) (Auto) 1 % (0-3) Neutrophils # (Auto) 5.3 x10^3/uL (1.8-7.7) Lymphocytes # (Auto) 0.9 x10^3/uL (1.0-4.8) Monocytes # (Auto) 1.0 x10^3/uL (0.0-1.1) Eosinophils # (Auto) 0.2 x10^3/uL (0.0-0.7) Basophils # (Auto) 0.1 x10^3/uL (0.0-0.2) Urine Collection Type Unknown Urine Color (Auto) Light orange Urine Turbidity Hazy Urine pH (Auto) 6.5 (<5.0-8.0) Urine Specific [facility] 1.012 (1.000-1.030) Urine Protein (Auto) Negative mg/dL (Negative) Urine Glucose (Auto)(UA) Negative mg/dL (Negative) Urine Ketones (Auto) Negative mg/dL (Negative) Urine Blood (Auto) Large (Negative) Urine Nitrite Negative (Negative) Urine Bilirubin (Auto) Negative (Negative) Urine Urobilinogen (Auto) Normal mg/dL (Normal) Urine Leukocyte Esterase (Auto) Large (Negative) Urine RBC Field obscured /HPF (0-2) Urine WBC 20-40 /HPF (0-4) Urine Squamous Epithelial Cells Occ /LPF Urine Bacteria Moderate /HPF (0-FEW) Prothrombin Time 17.8 SEC (11.7-14.0) Prothromb Time International Ratio 1.5 (0.8-1.1) Activated Partial Thromboplast Time 34 SEC (24-38) Sodium Level 140 mmol/L (136-145) Potassium Level 4.3 mmol/L (3.5-5.1) Chloride Level 103 mmol/L (98-107) Carbon Dioxide Level 27 mmol/L (21-32) Anion Gap 10 (6-14) Blood Urea Nitrogen 50 mg/dL (7-20) Creatinine 1.7 mg/dL (0.6-1.0) Estimated GFR (Cockcroft-Gault) 28.8 BUN/Creatinine Ratio 29 (6-20) Glucose Level 101 mg/dL (70-99) Calcium Level 12.5 mg/dL (8.5-10.1) Total Bilirubin 0.2 mg/dL (0.2-1.0) Aspartate Amino Transf (AST/SGOT) 57 U/L (15-37) Alanine Aminotransferase (ALT/SGPT) 18 U/L (14-59) Alkaline Phosphatase 195 U/L (46-116) Total Protein 8.6 g/dL (6.4-8.2) Albumin 3.0 g/dL (3.4-5.0) Albumin/Globulin Ratio 0.5 (1.0-1.7) Test 10/24/21 03:21 10/24/21 03:40 10/24/21 08:51 Glucose (Fingerstick) 132 mg/dL (70-99) 172 mg/dL (70-99) White Blood Count 6.2 x10^3/uL (4.0-11.0) Red Blood Count 2.80 x10^6/uL (3.50-5.40) Hemoglobin 7.8 g/dL (12.0-15.5) Hematocrit 24.5 % (36.0-47.0) Mean Corpuscular Volume 88 fL (79-100) Mean Corpuscular Hemoglobin 28 pg (25-35) Mean Corpuscular Hemoglobin Concent 32 g/dL (31-37) Red Cell Distribution Width 19.2 % (11.5-14.5) Platelet Count 201 x10^3/uL (140-400) Neutrophils (%) (Auto) 67 % (31-73) Lymphocytes (%) (Auto) 13 % (24-48) Monocytes (%) (Auto) 15 % (0-9) Eosinophils (%) (Auto) 4 % (0-3) Basophils (%) (Auto) 1 % (0-3) Neutrophils # (Auto) 4.1 x10^3/uL (1.8-7.7) Lymphocytes # (Auto) 0.8 x10^3/uL (1.0-4.8) Monocytes # (Auto) 0.9 x10^3/uL (0.0-1.1) Eosinophils # (Auto) 0.2 x10^3/uL (0.0-0.7) Basophils # (Auto) 0.1 x10^3/uL (0.0-0.2) Sodium Level 142 mmol/L (136-145) Potassium Level 4.6 mmol/L (3.5-5.1) Chloride Level 105 mmol/L (98-107) Carbon Dioxide Level 30 mmol/L (21-32) Anion Gap 7 (6-14) Blood Urea Nitrogen 44 mg/dL (7-20) Creatinine 1.7 mg/dL (0.6-1.0) Estimated GFR (Cockcroft-Gault) 28.8 BUN/Creatinine Ratio 26 (6-20) Glucose Level 137 mg/dL (70-99) Calcium Level 11.4 mg/dL (8.5-10.1) Total Bilirubin 0.2 mg/dL (0.2-1.0) Aspartate Amino Transf (AST/SGOT) 46 U/L (15-37) Alanine Aminotransferase (ALT/SGPT) 16 U/L (14-59) Alkaline Phosphatase 176 U/L (46-116) Total Protein 7.8 g/dL (6.4-8.2) Albumin 2.7 g/dL (3.4-5.0) Albumin/Globulin Ratio 0.5 (1.0-1.7) Laboratory Tests Test 10/23/21 13:30 10/23/21 14:35 10/23/21 14:50 10/23/21 15:20 Stool Occult Blood Positive (NEG) White Blood Count 7.5 x10^3/uL (4.0-11.0) Red Blood Count 2.97 x10^6/uL (3.50-5.40) Hemoglobin 8.2 g/dL (12.0-15.5) Hematocrit 25.7 % (36.0-47.0) Mean Corpuscular Volume 86 fL (79-100) Mean Corpuscular Hemoglobin 28 pg (25-35) Mean Corpuscular Hemoglobin Concent 32 g/dL (31-37) Red Cell Distribution Width 19.3 % (11.5-14.5) Platelet Count 216 x10^3/uL (140-400) Neutrophils (%) (Auto) 70 % (31-73) Lymphocytes (%) (Auto) 11 % (24-48) Monocytes (%) (Auto) 14 % (0-9) Eosinophils (%) (Auto) 3 % (0-3) Basophils (%) (Auto) 1 % (0-3) Neutrophils # (Auto) 5.3 x10^3/uL (1.8-7.7) Lymphocytes # (Auto) 0.9 x10^3/uL (1.0-4.8) Monocytes # (Auto) 1.0 x10^3/uL (0.0-1.1) Eosinophils # (Auto) 0.2 x10^3/uL (0.0-0.7) Basophils # (Auto) 0.1 x10^3/uL (0.0-0.2) Urine Collection Type Unknown Urine Color (Auto) Light orange Urine Turbidity Hazy Urine pH (Auto) 6.5 (<5.0-8.0) Urine Specific [facility] 1.012 (1.000-1.030) Urine Protein (Auto) Negative mg/dL (Negative) Urine Glucose (Auto)(UA) Negative mg/dL (Negative) Urine Ketones (Auto) Negative mg/dL (Negative) Urine Blood (Auto) Large (Negative) Urine Nitrite Negative (Negative) Urine Bilirubin (Auto) Negative (Negative) Urine Urobilinogen (Auto) Normal mg/dL (Normal) Urine Leukocyte Esterase (Auto) Large (Negative) Urine RBC Field obscured /HPF (0-2) Urine WBC 20-40 /HPF (0-4) Urine Squamous Epithelial Cells Occ /LPF Urine Bacteria Moderate /HPF (0-FEW) Prothrombin Time 17.8 SEC (11.7-14.0) Prothromb Time International Ratio 1.5 (0.8-1.1) Activated Partial Thromboplast Time 34 SEC (24-38) Sodium Level 140 mmol/L (136-145) Potassium Level 4.3 mmol/L (3.5-5.1) Chloride Level 103 mmol/L (98-107) Carbon Dioxide Level 27 mmol/L (21-32) Anion Gap 10 (6-14) Blood Urea Nitrogen 50 mg/dL (7-20) Creatinine 1.7 mg/dL (0.6-1.0) Estimated GFR (Cockcroft-Gault) 28.8 BUN/Creatinine Ratio 29 (6-20) Glucose Level 101 mg/dL (70-99) Calcium Level 12.5 mg/dL (8.5-10.1) Total Bilirubin 0.2 mg/dL (0.2-1.0) Aspartate Amino Transf (AST/SGOT) 57 U/L (15-37) Alanine Aminotransferase (ALT/SGPT) 18 U/L (14-59) Alkaline Phosphatase 195 U/L (46-116) Total Protein 8.6 g/dL (6.4-8.2) Albumin 3.0 g/dL (3.4-5.0) Albumin/Globulin Ratio 0.5 (1.0-1.7) Test 10/24/21 03:21 10/24/21 03:40 10/24/21 08:51 Glucose (Fingerstick) 132 mg/dL (70-99) 172 mg/dL (70-99) White Blood Count 6.2 x10^3/uL (4.0-11.0) Red Blood Count 2.80 x10^6/uL (3.50-5.40) Hemoglobin 7.8 g/dL (12.0-15.5) Hematocrit 24.5 % (36.0-47.0) Mean Corpuscular Volume 88 fL (79-100) Mean Corpuscular Hemoglobin 28 pg (25-35) Mean Corpuscular Hemoglobin Concent 32 g/dL (31-37) Red Cell Distribution Width 19.2 % (11.5-14.5) Platelet Count 201 x10^3/uL (140-400) Neutrophils (%) (Auto) 67 % (31-73) Lymphocytes (%) (Auto) 13 % (24-48) Monocytes (%) (Auto) 15 % (0-9) Eosinophils (%) (Auto) 4 % (0-3) Basophils (%) (Auto) 1 % (0-3) Neutrophils # (Auto) 4.1 x10^3/uL (1.8-7.7) Lymphocytes # (Auto) 0.8 x10^3/uL (1.0-4.8) Monocytes # (Auto) 0.9 x10^3/uL (0.0-1.1) Eosinophils # (Auto) 0.2 x10^3/uL (0.0-0.7) Basophils # (Auto) 0.1 x10^3/uL (0.0-0.2) Sodium Level 142 mmol/L (136-145) Potassium Level 4.6 mmol/L (3.5-5.1) Chloride Level 105 mmol/L (98-107) Carbon Dioxide Level 30 mmol/L (21-32) Anion Gap 7 (6-14) Blood Urea Nitrogen 44 mg/dL (7-20) Creatinine 1.7 mg/dL (0.6-1.0) Estimated GFR (Cockcroft-Gault) 28.8 BUN/Creatinine Ratio 26 (6-20) Glucose Level 137 mg/dL (70-99) Calcium Level 11.4 mg/dL (8.5-10.1) Total Bilirubin 0.2 mg/dL (0.2-1.0) Aspartate Amino Transf (AST/SGOT) 46 U/L (15-37) Alanine Aminotransferase (ALT/SGPT) 16 U/L (14-59) Alkaline Phosphatase 176 U/L (46-116) Total Protein 7.8 g/dL (6.4-8.2) Albumin 2.7 g/dL (3.4-5.0) Albumin/Globulin Ratio 0.5 (1.0-1.7) Assessment/Plan Assessment/Plan metastatic disease d/w IPC, plans for palliative consult hgb unchanged no surgical plans GERALD MACEDO MD 10/25/21 0751: CONSULT Assessment/Plan Assessment/Plan Reviewed with Ms Rudolph, agree with plan. No surgical plans, please call if needed in the future MOLLY RUDOLPH APRN October 24, 2021 11:33 GERALD MACEDO MD October 25, 2021 07:51
--- NOTE | 2021-10-24 12:22 | PDOC2 ---
CONSULT Date of Consult Date of Consult DATE: 10/24/21 TIME: 11:16 Reason for Consult Reason for Consult: unknown source of bleeding and anemia Referring Physician Referring Physician: Dr. Dg Vivar Identification/Chief Complaint Chief Complaint perineal region bleeding from hemorrhoids or rectum Source Source: Patient History of Present Illness Reason for Visit: 81 y/o female with metastatic breast cancer presents to Emergency Department with perineal region bleeding. Patient states she believes the bleeding is coming from her hemorrhoids or rectal bleeding. She states that she has doubts that the bleeding is from the urethra, vaginal, or vulva. Patient has been told by caregivers in the senior care that they witnessed bleeding from the hemorrhoids and rectum. She denies vaginal pain. She admits to bone pain, back pain, and abdominal pain. She denies nausea/vomiting and is tolerating diet. The last bowel movement was two days ago and she notices an increase in bleeding with bowel movement. Past Medical History Past Medical History patient had a single pelvic exam at age 16 y/o; she denies pap smear or pelvic exam; celibacy entire life; postmenopausal status at age 50 y/o with episode of postmenopausal bleeding at age 55 y/o Cardiovascular: HTN Pulmonary: No pertinent hx CENTRAL NERVOUS SYSTEM: Periperal neuropathy GI: Hemorrhoids Heme/Onc: Anemia NOS, Cancer (metastatic breast cancer), Other Hepatobiliary: Cholelithiasis Psych: No pertinent hx Musculoskeletal: low back pain, Other (right hip pain) Rheumatologic: No pertinent hx Infectious disease: No pertinent hx ENT: No pertinent hx Renal/: Urinary Incontinence, Other (hydronephrosis) Endocrine: Diabetes Dermatology: No pertinent hx Grav: 0 Para: 0 Past Surgical History Past Surgical History: Mastectomy Family History Family History: Coronary Artery Disease, Diabetes, Other Social History Social History [facility] the [facility] at age 16 y/o. She has never had intercourse and is celibate. No ALCOHOL: none Drugs: None Lives: Residential Current Problem List Problem List Problems Medical Problems: (1) Abnormal uterine bleeding Status: Deleted with no evidence (2) Anemia Status: Acute (3) Compression fracture of T8 vertebra Status: Acute (4) Hemorrhoids Status: Acute Current Medications Current Medications Current Medications Morphine Sulfate (Morphine Sulfate) 4 mg PRN Q15MIN PRN IV/SQ PAIN GREATER THAN 3/10 Last administered on 10/24/21at 08:50; Start 10/23/21 at 13:45; Stop 10/24/21 at 13:44 Ondansetron HCl (Zofran) 4 mg 1X ONCE IVP Last administered on 10/23/21at 15:56; Start 10/23/21 at 13:45; Stop 10/23/21 at 13:46; Status DC Iohexol (Omnipaque 300 Mg/ml) 75 ml 1X ONCE IV ; Start 10/23/21 at 13:45; Stop 10/23/21 at 13:46; Status DC Info (CONTRAST GIVEN -- Rx MONITORING) 1 each PRN DAILY PRN MC SEE COMMENTS; Start 10/23/21 at 13:45; Stop 10/25/21 at 13:44 Sodium Chloride 1,000 ml @ 1,000 mls/hr 1X ONCE IV ; Start 10/23/21 at 19:00; Stop 10/23/21 at 19:59; Status DC Sodium Chloride 1,000 ml @ 1,000 mls/hr 1X ONCE IV ; Start 10/23/21 at 19:00; Stop 10/23/21 at 19:59; Status DC Sodium Chloride 1,000 ml @ 125 mls/hr 1X ONCE IV ; Start 10/23/21 at 19:00; Stop 10/24/21 at 02:59; Status DC Ondansetron HCl (Zofran) 4 mg PRN Q8HRS PRN IVP NAUSEA/VOMITING; Start 10/23/21 at 20:15; Stop 10/24/21 at 20:14 Morphine Sulfate (Morphine Sulfate) 4 mg PRN Q2HR PRN IVP PAIN Last administered on 10/23/21at 21:44; Start 10/23/21 at 20:15; Stop 10/25/21 at 20:14 Acetaminophen (Tylenol) 650 mg PRN Q4HRS PRN PO FEVER > 100.3'F; Start 10/23/21 at 20:15; Stop 10/24/21 at 20:14 Sodium Chloride 1,000 ml @ 125 mls/hr 1X ONCE IV Last administered on 10/23/21at 21:44; Start 10/23/21 at 20:45; Stop 10/24/21 at 04:44; Status DC Hydrocortisone/ Pramoxine (Proctofoam-Hc Foam) 1 juvencio PRN QID PRN RC RECTAL PAIN; Start 10/23/21 at 21:45 Docusate Sodium (Colace) 100 mg BID PO ; Start 10/24/21 at 09:00 Magnesium Hydroxide (Milk Of Magnesia) 400 mg DAILY PO ; Start 10/24/21 at 09:00 Insulin Human Lispro (HumaLOG) 0-9 UNITS TIDACHC SQ Last administered on 10/24/21at 09:29; Start 10/24/21 at 07:30 Dextrose (Dextrose 50%-Water Syringe) 12.5 gm PRN Q15MIN PRN IV SEE COMMENTS; Start 10/23/21 at 21:45 Oxycodone HCl (Roxicodone) 5 mg PRN Q6HRS PRN PO SEVERE PAIN 7-10; Start 10/23/21 at 22:00 Pantoprazole Sodium (Protonix) 40 mg DAILYAC PO ; Start 10/24/21 at 11:30 Active Scripts Active Reported Imodium A-D (Loperamide HCl) 2 Mg Capsule 2 Mg PO PRN Align (Bifidobacterium Infantis) 4 Mg Capsule 4 Mg PO DAILY Acetaminophen 500 Mg Tablet 500 Mg PO TID Milk Of Magnesia (Magnesium Hydroxide) 400 Mg/5 Ml Oral.susp 400 Mg PO PRN Zofran (Ondansetron Hcl) 4 Mg Tablet 1 Tab PO Q6HRS Lipitor (Atorvastatin Calcium) 40 Mg Tablet 1 Tab PO QHS Colace (Docusate Sodium) 100 Mg Capsule 100 Mg PO DAILY Preservision Areds Softgel (Vit A/Vit C/Vit E/Zinc/Copper) 1 Each Capsule 1 Each PO 1X Aspirin 81 Mg Tab.chew 1 Tab PO DAILY Align (Bifidobacterium Infantis) 4 Mg Capsule 4 Mg PO DAILY [place] 5-325 Tablet (Acetaminophen/Hydrocodone Bitart) 1 Each Tablet 1 Tab PO PRN Q6HRS PRN Humalog (Insulin Lispro) 100 Unit/1 Ml Insuln.pen 24 Unit SQ BID Levemir (Insulin Detemir) 100 Unit/1 Ml Vial 42 Unit SQ DAILYWBKFT Lipitor (Atorvastatin Calcium) 40 Mg Tablet 40 Mg PO HS Colace (Docusate Sodium) 100 Mg Capsule 100 Mg PO 2TABS PO DAILY Potassium Chloride 20 Meq Tab.er.prt 20 Meq PO 2TABS(40MEQ) BID Preservision Areds Softgel (Vit A/Vit C/Vit E/Zinc/Copper) 1 Each Capsule 1 Each PO DAILY Xarelto (Rivaroxaban) 20 Mg Tablet 20 Mg PO DAILY Levemir (Insulin Detemir) 100 Unit/1 Ml Vial 65 Unit SQ HS Furosemide 40 Mg Tablet 20 Mg PO BID Allergies Allergies: Coded Allergies: ibuprofen (Verified Allergy, Intermediate, 10/23/21) ROS Hematological and Lymphatic: YES: Blood Clots Gastrointestinal: Yes Hematochezia Genitourinary: YES Incontinence Musculoskeletal: Yes Pain In: (right hip) Physical Exam General: Alert, Oriented X3, Cooperative, No acute distress Abdomen: Soft, No tenderness Vitals VITALS Vital Signs Date Time Temp Pulse Resp B/P (MAP) Pulse Ox O2 Delivery O2 Flow Rate FiO2 10/24/21 08:50 18 98 Room Air 10/24/21 07:00 98.1 63 122/48 (72) 2.0 98.1 Labs Labs Laboratory Tests Test 10/23/21 13:30 10/23/21 14:35 10/23/21 14:50 10/23/21 15:20 Stool Occult Blood Positive (NEG) White Blood Count 7.5 x10^3/uL (4.0-11.0) Red Blood Count 2.97 x10^6/uL (3.50-5.40) Hemoglobin 8.2 g/dL (12.0-15.5) Hematocrit 25.7 % (36.0-47.0) Mean Corpuscular Volume 86 fL (79-100) Mean Corpuscular Hemoglobin 28 pg (25-35) Mean Corpuscular Hemoglobin Concent 32 g/dL (31-37) Red Cell Distribution Width 19.3 % (11.5-14.5) Platelet Count 216 x10^3/uL (140-400) Neutrophils (%) (Auto) 70 % (31-73) Lymphocytes (%) (Auto) 11 % (24-48) Monocytes (%) (Auto) 14 % (0-9) Eosinophils (%) (Auto) 3 % (0-3) Basophils (%) (Auto) 1 % (0-3) Neutrophils # (Auto) 5.3 x10^3/uL (1.8-7.7) Lymphocytes # (Auto) 0.9 x10^3/uL (1.0-4.8) Monocytes # (Auto) 1.0 x10^3/uL (0.0-1.1) Eosinophils # (Auto) 0.2 x10^3/uL (0.0-0.7) Basophils # (Auto) 0.1 x10^3/uL (0.0-0.2) Urine Collection Type Unknown Urine Color (Auto) Light orange Urine Turbidity Hazy Urine pH (Auto) 6.5 (<5.0-8.0) Urine Specific [place] 1.012 (1.000-1.030) Urine Protein (Auto) Negative mg/dL (Negative) Urine Glucose (Auto)(UA) Negative mg/dL (Negative) Urine Ketones (Auto) Negative mg/dL (Negative) Urine Blood (Auto) Large (Negative) Urine Nitrite Negative (Negative) Urine Bilirubin (Auto) Negative (Negative) Urine Urobilinogen (Auto) Normal mg/dL (Normal) Urine Leukocyte Esterase (Auto) Large (Negative) Urine RBC Field obscured /HPF (0-2) Urine WBC 20-40 /HPF (0-4) Urine Squamous Epithelial Cells Occ /LPF Urine Bacteria Moderate /HPF (0-FEW) Prothrombin Time 17.8 SEC (11.7-14.0) Prothromb Time International Ratio 1.5 (0.8-1.1) Activated Partial Thromboplast Time 34 SEC (24-38) Sodium Level 140 mmol/L (136-145) Potassium Level 4.3 mmol/L (3.5-5.1) Chloride Level 103 mmol/L (98-107) Carbon Dioxide Level 27 mmol/L (21-32) Anion Gap 10 (6-14) Blood Urea Nitrogen 50 mg/dL (7-20) Creatinine 1.7 mg/dL (0.6-1.0) Estimated GFR (Cockcroft-Gault) 28.8 BUN/Creatinine Ratio 29 (6-20) Glucose Level 101 mg/dL (70-99) Calcium Level 12.5 mg/dL (8.5-10.1) Total Bilirubin 0.2 mg/dL (0.2-1.0) Aspartate Amino Transf (AST/SGOT) 57 U/L (15-37) Alanine Aminotransferase (ALT/SGPT) 18 U/L (14-59) Alkaline Phosphatase 195 U/L (46-116) Total Protein 8.6 g/dL (6.4-8.2) Albumin 3.0 g/dL (3.4-5.0) Albumin/Globulin Ratio 0.5 (1.0-1.7) Test 10/24/21 03:21 10/24/21 03:40 10/24/21 08:51 Glucose (Fingerstick) 132 mg/dL (70-99) 172 mg/dL (70-99) White Blood Count 6.2 x10^3/uL (4.0-11.0) Red Blood Count 2.80 x10^6/uL (3.50-5.40) Hemoglobin 7.8 g/dL (12.0-15.5) Hematocrit 24.5 % (36.0-47.0) Mean Corpuscular Volume 88 fL (79-100) Mean Corpuscular Hemoglobin 28 pg (25-35) Mean Corpuscular Hemoglobin Concent 32 g/dL (31-37) Red Cell Distribution Width 19.2 % (11.5-14.5) Platelet Count 201 x10^3/uL (140-400) Neutrophils (%) (Auto) 67 % (31-73) Lymphocytes (%) (Auto) 13 % (24-48) Monocytes (%) (Auto) 15 % (0-9) Eosinophils (%) (Auto) 4 % (0-3) Basophils (%) (Auto) 1 % (0-3) Neutrophils # (Auto) 4.1 x10^3/uL (1.8-7.7) Lymphocytes # (Auto) 0.8 x10^3/uL (1.0-4.8) Monocytes # (Auto) 0.9 x10^3/uL (0.0-1.1) Eosinophils # (Auto) 0.2 x10^3/uL (0.0-0.7) Basophils # (Auto) 0.1 x10^3/uL (0.0-0.2) Sodium Level 142 mmol/L (136-145) Potassium Level 4.6 mmol/L (3.5-5.1) Chloride Level 105 mmol/L (98-107) Carbon Dioxide Level 30 mmol/L (21-32) Anion Gap 7 (6-14) Blood Urea Nitrogen 44 mg/dL (7-20) Creatinine 1.7 mg/dL (0.6-1.0) Estimated GFR (Cockcroft-Gault) 28.8 BUN/Creatinine Ratio 26 (6-20) Glucose Level 137 mg/dL (70-99) Calcium Level 11.4 mg/dL (8.5-10.1) Total Bilirubin 0.2 mg/dL (0.2-1.0) Aspartate Amino Transf (AST/SGOT) 46 U/L (15-37) Alanine Aminotransferase (ALT/SGPT) 16 U/L (14-59) Alkaline Phosphatase 176 U/L (46-116) Total Protein 7.8 g/dL (6.4-8.2) Albumin 2.7 g/dL (3.4-5.0) Albumin/Globulin Ratio 0.5 (1.0-1.7) Laboratory Tests Test 10/23/21 13:30 10/23/21 14:35 10/23/21 14:50 10/23/21 15:20 Stool Occult Blood Positive (NEG) White Blood Count 7.5 x10^3/uL (4.0-11.0) Red Blood Count 2.97 x10^6/uL (3.50-5.40) Hemoglobin 8.2 g/dL (12.0-15.5) Hematocrit 25.7 % (36.0-47.0) Mean Corpuscular Volume 86 fL (79-100) Mean Corpuscular Hemoglobin 28 pg (25-35) Mean Corpuscular Hemoglobin Concent 32 g/dL (31-37) Red Cell Distribution Width 19.3 % (11.5-14.5) Platelet Count 216 x10^3/uL (140-400) Neutrophils (%) (Auto) 70 % (31-73) Lymphocytes (%) (Auto) 11 % (24-48) Monocytes (%) (Auto) 14 % (0-9) Eosinophils (%) (Auto) 3 % (0-3) Basophils (%) (Auto) 1 % (0-3) Neutrophils # (Auto) 5.3 x10^3/uL (1.8-7.7) Lymphocytes # (Auto) 0.9 x10^3/uL (1.0-4.8) Monocytes # (Auto) 1.0 x10^3/uL (0.0-1.1) Eosinophils # (Auto) 0.2 x10^3/uL (0.0-0.7) Basophils # (Auto) 0.1 x10^3/uL (0.0-0.2) Urine Collection Type Unknown Urine Color (Auto) Light orange Urine Turbidity Hazy Urine pH (Auto) 6.5 (<5.0-8.0) Urine Specific [place] 1.012 (1.000-1.030) Urine Protein (Auto) Negative mg/dL (Negative) Urine Glucose (Auto)(UA) Negative mg/dL (Negative) Urine Ketones (Auto) Negative mg/dL (Negative) Urine Blood (Auto) Large (Negative) Urine Nitrite Negative (Negative) Urine Bilirubin (Auto) Negative (Negative) Urine Urobilinogen (Auto) Normal mg/dL (Normal) Urine Leukocyte Esterase (Auto) Large (Negative) Urine RBC Field obscured /HPF (0-2) Urine WBC 20-40 /HPF (0-4) Urine Squamous Epithelial Cells Occ /LPF Urine Bacteria Moderate /HPF (0-FEW) Prothrombin Time 17.8 SEC (11.7-14.0) Prothromb Time International Ratio 1.5 (0.8-1.1) Activated Partial Thromboplast Time 34 SEC (24-38) Sodium Level 140 mmol/L (136-145) Potassium Level 4.3 mmol/L (3.5-5.1) Chloride Level 103 mmol/L (98-107) Carbon Dioxide Level 27 mmol/L (21-32) Anion Gap 10 (6-14) Blood Urea Nitrogen 50 mg/dL (7-20) Creatinine 1.7 mg/dL (0.6-1.0) Estimated GFR (Cockcroft-Gault) 28.8 BUN/Creatinine Ratio 29 (6-20) Glucose Level 101 mg/dL (70-99) Calcium Level 12.5 mg/dL (8.5-10.1) Total Bilirubin 0.2 mg/dL (0.2-1.0) Aspartate Amino Transf (AST/SGOT) 57 U/L (15-37) Alanine Aminotransferase (ALT/SGPT) 18 U/L (14-59) Alkaline Phosphatase 195 U/L (46-116) Total Protein 8.6 g/dL (6.4-8.2) Albumin 3.0 g/dL (3.4-5.0) Albumin/Globulin Ratio 0.5 (1.0-1.7) Test 10/24/21 03:21 10/24/21 03:40 10/24/21 08:51 Glucose (Fingerstick) 132 mg/dL (70-99) 172 mg/dL (70-99) White Blood Count 6.2 x10^3/uL (4.0-11.0) Red Blood Count 2.80 x10^6/uL (3.50-5.40) Hemoglobin 7.8 g/dL (12.0-15.5) Hematocrit 24.5 % (36.0-47.0) Mean Corpuscular Volume 88 fL (79-100) Mean Corpuscular Hemoglobin 28 pg (25-35) Mean Corpuscular Hemoglobin Concent 32 g/dL (31-37) Red Cell Distribution Width 19.2 % (11.5-14.5) Platelet Count 201 x10^3/uL (140-400) Neutrophils (%) (Auto) 67 % (31-73) Lymphocytes (%) (Auto) 13 % (24-48) Monocytes (%) (Auto) 15 % (0-9) Eosinophils (%) (Auto) 4 % (0-3) Basophils (%) (Auto) 1 % (0-3) Neutrophils # (Auto) 4.1 x10^3/uL (1.8-7.7) Lymphocytes # (Auto) 0.8 x10^3/uL (1.0-4.8) Monocytes # (Auto) 0.9 x10^3/uL (0.0-1.1) Eosinophils # (Auto) 0.2 x10^3/uL (0.0-0.7) Basophils # (Auto) 0.1 x10^3/uL (0.0-0.2) Sodium Level 142 mmol/L (136-145) Potassium Level 4.6 mmol/L (3.5-5.1) Chloride Level 105 mmol/L (98-107) Carbon Dioxide Level 30 mmol/L (21-32) Anion Gap 7 (6-14) Blood Urea Nitrogen 44 mg/dL (7-20) Creatinine 1.7 mg/dL (0.6-1.0) Estimated GFR (Cockcroft-Gault) 28.8 BUN/Creatinine Ratio 26 (6-20) Glucose Level 137 mg/dL (70-99) Calcium Level 11.4 mg/dL (8.5-10.1) Total Bilirubin 0.2 mg/dL (0.2-1.0) Aspartate Amino Transf (AST/SGOT) 46 U/L (15-37) Alanine Aminotransferase (ALT/SGPT) 16 U/L (14-59) Alkaline Phosphatase 176 U/L (46-116) Total Protein 7.8 g/dL (6.4-8.2) Albumin 2.7 g/dL (3.4-5.0) Albumin/Globulin Ratio 0.5 (1.0-1.7) Images Images [id number] [place] [address] IMAGING REPORT Signed PATIENT: MALIK MENSAH ACCOUNT: [id number] : 1940 LOCATION: ER AGE: 81 SEX: F EXAM STATUS: REG ER ORD. PHYSICIAN: FANTASMA KOENIG APRN REASON: rectal/vaginal bleeding/WO due to elevated labs per ording DR PROCEDURE: CT ABDOMEN PELVIS WO CONTRAST Exam: CT abdomen/pelvis without intravenous contrast Indication: Rectal and vaginal bleeding, history of metastatic breast cancer Comparison: CT chest 7 pelvis 05/05/2018 Technique: Helical CT imaging performed of the abdomen and pelvis without the use of intravenous contrast. Sagittal and coronal reformats were obtained. One or more of the following individualized dose reduction techniques were utilized for this examination: 1. Automated exposure control 2. Adjustment of the mA and/or kV according to patient size 3. Use of iterative reconstruction technique. Findings: Inherently limited evaluation without intravenous contrast. Lower chest: The heart is normal size. There is a right chest wall port with tip terminating at the superior cavoatrial junction. There are coronary artery calcifications. There are new or increased small mediastinal lymph nodes, incompletely evaluated. There are 2 new pulmonary nodules along the minor fissure measuring 4 mm (image 10, series 2). There is a new 3 mm nodule in the anterior right upper lobe (image 6, series 2). There is a new 4 mm nodule in the right lower lobe (image 12, series 2). There is no new consolidative opacities in the posterior medial left lower lobe. Liver: Unremarkable noncontrast appearance of the liver. Gallbladder/Biliary Tree: Cholelithiasis. Pancreas: There is diffuse pancreatic atrophy. Spleen: Normal. Adrenal Glands: Normal. Kidneys/Ureters/Bladder: Kidneys are normal in size. No nephrolithiasis. There is new mild bilateral hydronephrosis and hydroureter. No obstructing calculus seen. There is new moderate bladder wall thickening, greatest anteriorly. Reproductive Organs: Enlarged, leiomyomatous uterus with multiple calcified fibroids, grossly unchanged. No adnexal mass. Stomach, small bowel, and colon: The stomach, small bowel, appendix, and colon are unremarkable. There is some soft tissue thickening in the region of the anus, not well evaluated and nonspecific. Vasculature: No aortic aneurysm. There is mild calcified aortoiliac atherosclerosis. There is an IVC filter in place. Lymph Nodes: No lymphadenopathy. A portacaval lymph node is slightly larger, now 1.1 cm short axis, previously 0.6 cm short axis. Peritoneum and retroperitoneum: No free fluid or free air. Bones: There are diffuse bony metastases, with worsened osseous destruction of the pelvis and multiple lumbar and thoracic vertebral bodies. New compression fracture of T8 with 30 percent height loss. There are old compression fractures at L1, L3, L4, and L5. Additional old compression fracture at T9. The L1, L4, L5 compression fractures have up to 50 percent vertebral body height loss. This has mildly increased at L4. No retropulsion of any fractures. There are multiple bilateral rib lesions and old or healing rib fractures. There is an increased or new soft tissue component along a right posterior ninth rib lesion. Miscellaneous: There is subcutaneous fat stranding in the lower anterior abdominal wall, related to edema or medication injections. Diffuse muscular atrophy in the pelvis and proximal thighs. A partially visualized 4.1 x 2.9 cm fat-containing intramuscular mass in the left proximal thigh is redemonstrated and likely a lipoma. IMPRESSION: 1. Worsened diffuse osseous metastatic disease with increased bony destruction of the pelvis and increased metastatic disease in the lumbar spine. There is a new compression fracture of T8 and multiple old compression fractures in the lower thoracic and lumbar spine. 2. There is a new soft tissue component along a right posterior ninth rib lesion. 3. Several new pulmonary nodules in the right lung base, nonspecific. New left lower lobe opacities, which could be pneumonia or atelectasis. 4. No acute abnormality of the bowel. There is questionable soft tissue thickening in the region of anus, which is nonspecific and not well evaluated by CT. Correlate with physical exam. 5. New mild bilateral hydronephrosis and hydroureter without obstructing calculus visualized. 6. New moderate wall thickening with bladder, greatest anteriorly. Underlying bladder mass or infection not excluded. 7. Enlarged, leiomyomatous uterus, unchanged. 8. Cholelithiasis. 9. A retrievable IVC filter is noted, and the referring physician is encouraged to ensure that a management plan for this filter is in place. If no such plan is present, referral to an interventional clinician on a non-emergent basis should be considered. The [employer] appropriateness criteria for placement and management of IVC filters can be found on the web at: www.acr.org/quality-safety/appropriateness-criteria/interventional Electronically signed by: Sherice Martinez MD (10/23/2021 5:10 PM) [facility] DICTATED and SIGNED BY: SHERICE MARTINEZ MD DATE: 10/23/21 9713 Assessment/Plan Assessment/Plan 81 y/o postmenopausal female 1. Metastatic breast cancer. 2. Rectal bleeding: The etiology could be hemorrhoids, rectum, or colon. There is some soft tissue thickening in the region of the anus, not well evaluated and nonspecific on the CT abdomen/pelvis. GI consulted and please see report. 3. Vaginal bleeding is undetermined/unwitnessed: This is an unlikely source of the perineal bleeding based on patient and caregiver report. The pelvic ultrasound is pending report. The transabdominal study was limited by incomplete bladder filling and body habitus. Patient declines transvaginal ultrasound or pelvic exam. The CT scan of the abdomen/pelvis shows stable uterine fibroids calcified. Recommend oral hydration and repeat pelvic ultrasound after bladder filling. Discussed MRI is a poor option for this patient and patient prefers not to have study performed. 4. Patient is high risk for uterine cancer because of risk factors such as obesity and nulliparous female. If patient has suspected uterine cancer, recommend outpatient referral to Gynecology/Oncology. However, the patient is unlikely to currently have vaginal bleeding based on her clinical presentation and the bleeding is most likely from the GI source. 5. Uterine fibroids: The CT abdomen/pelvis is stable finding. 6. History of DVT: Patient is anti-coagulated with Xarelto. She also has a IVC filter. 7. Anemia: Managed and monitored by hospitalist. FELA NASH MD October 24, 2021 12:22
--- NOTE | 2021-10-24 12:32 | NUR ---
Milk of Magnesia not given this AM because patient states she normally takes medication at bedtime, order changed in [facility].
[2021-10-24] MEDS: PANTOPRAZOLE 40 MG TABLET.DR. PO SCH (12:38)
--- NOTE | 2021-10-24 12:51 | RAD ---
EXAM: Pelvic sonogram. HISTORY: Postmenopausal bleeding. Urine fibroid. TECHNIQUE: Sonographic imaging of the pelvis was performed. COMPARISON: CT dated 11/02/2021. FINDINGS: The exam is extremely limited due to patient body habitus and an empty urinary bladder. The uterus measures 11.7 x 5.5 x 4.7 cm. The endometrial stripe is not clearly seen. The ovaries are obs cured. No adnexal mass, cyst or free fluid is seen. IMPRESSION: 1. Extremely limited exam due to patient body habitus and empty urinary bladder. The endometrial stri pe and ovaries are obscured. The recently demonstrated multiple calcified masses involving the uterus likely due to calcified uterine fibroids are not well seen sonographically. 2. Prominent uterus size for the postmenopausal nulligravida status of the patient. Electronically signed by: Jesica Hutchison MD (10/24/2021 12:49 PM) [id number]
--- NOTE | 2021-10-24 14:05 | NUR ---
SS following for discharge planning. SS reviewed pt chart and discussed with pt RN. Pt is sister from [facility]. Pt is currently requiring oxygen at two liters nasal canula. Pt stating that she is DNR/DNI and sister's provided that information to the hospital. Palliative Care/Hospice recommended by physician. SS and physician discussed with pt. Pt requesting to return to [facility] at this time with no services. Pt reported that she will discuss with her Rental Manager and will make decision on services at [facility]. SS discussed with JORGE, Ai Kruger, at [facility]. SS will continue to follow for discharge planning.
--- NOTE | 2021-10-24 14:40 | PDOC ---
[employer] PROGRESS NOTE Date of Service DOS: DATE: 10/24/21 TIME: 14:37 Chief Complaint Chief Complaint Assessment/Plan Acute blood loss anemia - due to GI loss and likely of chronic disease with metastatic cancer Rectal bleeding - seems hemorrhoidal, will treat, monitor Hypercalcemia - likely of malignancy, will aggressively hydrate, may need lasix and zoledronic acid, will consult nephrology IVON - vasomotor nephropathy likely due to hypercalcemia, will monitor renal function on IVF DM2 - sliding scale insulin HTN - cont home meds Metastatic breast cancer - worsened diffuse osseous metastatic disease with increased bony destruction of the pelvis and increased metastatic disease in the lumbar spine and T8 and 9th rib. 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 Over the past 2 days she has started to notice clots as well. She has rectal bleeding from hemorrhoids and initially told ED she had vaginal bleeding. She was treated outpatient twice in the past year for hemorrhoids at [facility]. She is being followed outpatient for metastatic breast cancer with bony mets, was unable to tolerate gemcitabine therapy and quit this last year due to swelling of her legs. She now has become wheelchair bound, notes her right knee is "locking up" all the time recently. No recent travel or sick contacts. Labs with WBC 7.5, Hb 8.2, platelets 216, NA 140, K4.3, BUN 50, CR 1.7, glucose 101, calcium 12.5 with albumin 3, alkaline phosphatase 195, ALT 18, AST 57, INR 1.5, urine urinalysis with large leuk esterase, fecal occult positive. CT abdomen pelvis concerning for worsened diffuse osseous metastatic disease w ith increased bony destruction of the pelvis and increased metastatic disease in the lumbar spine. New compression fracture of T8 and multiple old compression fractures in the lower thoracic and lumbar spine and a new soft tissue component along a right posterior ninth rib lesion. Bladder mass and mild hydronephrosis noted as well. 10/24/2021 No acute events overnight. Patient seen examined bedside. Still complaining some pain in her perineal region. No obvious bleeding. Hemoglobin stable at 7.8. Evaluated by gynecology and she does not want to have any pelvic exam or repeat transvaginal ultrasound. 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 Patient's chart, labs, images were reviewed and discussed with RN Vitals/I&O Vitals/I&O: Vital Signs Date Time Temp Pulse Resp B/P (MAP) Pulse Ox O2 Delivery O2 Flow Rate FiO2 10/24/21 11:00 97.5 75 16 117/42 (67) 94 Nasal Cannula 2.0 97.5 I & O 10/23/21 10/23/21 10/24/21 15:00 23:00 07:00 Intake Total 200 ml 300 ml Balance 200 ml 300 ml Physical Exam General: Alert, Oriented X3, Cooperative, No acute distress Heart: Regular rate, Normal S1, Normal S2 Abdomen: Soft, No tenderness Extremities: No clubbing, No cyanosis Skin: No rashes, No breakdown Labs Labs: Laboratory Tests Test 10/23/21 14:50 10/23/21 15:20 10/24/21 03:21 10/24/21 03:40 Urine Collection Type Unknown Urine Color (Auto) Light orange Urine Turbidity Hazy Urine pH (Auto) 6.5 (<5.0-8.0) Urine Specific [place] 1.012 (1.000-1.030) Urine Protein (Auto) Negative mg/dL (Negative) Urine Glucose (Auto)(UA) Negative mg/dL (Negative) Urine Ketones (Auto) Negative mg/dL (Negative) Urine Blood (Auto) Large (Negative) Urine Nitrite Negative (Negative) Urine Bilirubin (Auto) Negative (Negative) Urine Urobilinogen (Auto) Normal mg/dL (Normal) Urine Leukocyte Esterase (Auto) Large (Negative) Urine RBC Field obscured /HPF (0-2) Urine WBC 20-40 /HPF (0-4) Urine Squamous Epithelial Cells Occ /LPF Urine Bacteria Moderate /HPF (0-FEW) Prothrombin Time 17.8 SEC (11.7-14.0) Prothromb Time International Ratio 1.5 (0.8-1.1) Activated Partial Thromboplast Time 34 SEC (24-38) Sodium Level 140 mmol/L (136-145) 142 mmol/L (136-145) Potassium Level 4.3 mmol/L (3.5-5.1) 4.6 mmol/L (3.5-5.1) Chloride Level 103 mmol/L (98-107) 105 mmol/L (98-107) Carbon Dioxide Level 27 mmol/L (21-32) 30 mmol/L (21-32) Anion Gap 10 (6-14) 7 (6-14) Blood Urea Nitrogen 50 mg/dL (7-20) 44 mg/dL (7-20) Creatinine 1.7 mg/dL (0.6-1.0) 1.7 mg/dL (0.6-1.0) Estimated GFR (Cockcroft-Gault) 28.8 28.8 BUN/Creatinine Ratio 29 (6-20) 26 (6-20) Glucose Level 101 mg/dL (70-99) 137 mg/dL (70-99) Calcium Level 12.5 mg/dL (8.5-10.1) 11.4 mg/dL (8.5-10.1) Total Bilirubin 0.2 mg/dL (0.2-1.0) 0.2 mg/dL (0.2-1.0) Aspartate Amino Transf (AST/SGOT) 57 U/L (15-37) 46 U/L (15-37) Alanine Aminotransferase (ALT/SGPT) 18 U/L (14-59) 16 U/L (14-59) Alkaline Phosphatase 195 U/L (46-116) 176 U/L (46-116) Total Protein 8.6 g/dL (6.4-8.2) 7.8 g/dL (6.4-8.2) Albumin 3.0 g/dL (3.4-5.0) 2.7 g/dL (3.4-5.0) Albumin/Globulin Ratio 0.5 (1.0-1.7) 0.5 (1.0-1.7) Glucose (Fingerstick) 132 mg/dL (70-99) White Blood Count 6.2 x10^3/uL (4.0-11.0) Red Blood Count 2.80 x10^6/uL (3.50-5.40) Hemoglobin 7.8 g/dL (12.0-15.5) Hematocrit 24.5 % (36.0-47.0) Mean Corpuscular Volume 88 fL (79-100) Mean Corpuscular Hemoglobin 28 pg (25-35) Mean Corpuscular Hemoglobin Concent 32 g/dL (31-37) Red Cell Distribution Width 19.2 % (11.5-14.5) Platelet Count 201 x10^3/uL (140-400) Neutrophils (%) (Auto) 67 % (31-73) Lymphocytes (%) (Auto) 13 % (24-48) Monocytes (%) (Auto) 15 % (0-9) Eosinophils (%) (Auto) 4 % (0-3) Basophils (%) (Auto) 1 % (0-3) Neutrophils # (Auto) 4.1 x10^3/uL (1.8-7.7) Lymphocytes # (Auto) 0.8 x10^3/uL (1.0-4.8) Monocytes # (Auto) 0.9 x10^3/uL (0.0-1.1) Eosinophils # (Auto) 0.2 x10^3/uL (0.0-0.7) Basophils # (Auto) 0.1 x10^3/uL (0.0-0.2) Test 10/24/21 08:51 10/24/21 12:04 Glucose (Fingerstick) 172 mg/dL (70-99) 160 mg/dL (70-99) Assessment and Plan Assessmemt and Plan Problems Medical Problems: (1) Anemia Status: Acute (2) Compression fracture of T8 vertebra Status: Acute (3) Hemorrhoids Status: Acute Comment Review of Relevant I have reviewed the following items elsie (where applicable) has been applied. Medications: Current Medications Medications (Trade) Dose Ordered Sig/Kamala Route PRN Reason Start Time Stop Time Status Last Admin Dose Admin Morphine Sulfate (Morphine Sulfate) 4 mg PRN Q2HR PRN IVP PAIN 10/23/21 20:15 10/25/21 20:14 10/23/21 21:44 Sodium Chloride 1,000 ml @ 125 mls/hr 1X ONCE IV 10/23/21 20:45 10/24/21 04:44 DC 10/23/21 21:44 Docusate Sodium (Colace) 100 mg BID PO 10/24/21 09:00 10/24/21 09:00 Insulin Human Lispro (HumaLOG) 0-9 UNITS TIDACHC SQ 10/24/21 07:30 10/24/21 12:37 Pantoprazole Sodium (Protonix) 40 mg DAILYAC PO 10/24/21 11:30 10/24/21 12:38 Justifications for Admission Other Justification KLEBER VEGA MD October 24, 2021 14:40
[2021-10-24 15:00] VITALS: BP 118/44
[2021-10-24] MEDS: MORPHINE SULFATE 4 MG/ML INJ. IVP PRN (18:30)
[2021-10-24 19:00] VITALS: BP 116/46
[2021-10-24 23:00] VITALS: BP 118/48
[2021-10-25] MEDS: MORPHINE SULFATE 4 MG/ML INJ. IVP PRN ×2 (01:12→05:59)
[2021-10-25 03:00] VITALS: BP 119/46
[2021-10-25] MEDS ORDERED: MORPHINE SULFATE 4 MG/ML INJ. IV PRN (06:30)
[2021-10-25] MEDS ORDERED: ONDANSETRON PF 4 MG/2 ML VIAL. IVP PRN (06:30)
[2021-10-25 07:00] VITALS: BP 122/50
[2021-10-25 07:44] LABS: HEMATOCRIT 23.8 % (36.0-47.0); HEMOGLOBIN 7.5 g/dL (12.0-15.5); RED BLOOD COUNT 2.69 x10^6/uL (3.50-5.40); RED CELL DISTRIBUTION WIDTH 19.3 % (11.5-14.5); WHITE BLOOD COUNT 6.2 x10^3/uL (4.0-11.0)
[2021-10-25] MEDS: PANTOPRAZOLE 40 MG TABLET.DR. PO SCH (07:50)
[2021-10-25] MEDS: INSULIN LISPRO 300 UNITS/3 ML VIAL. SQ SCH ×2 (07:51→12:12)
[2021-10-25 09:10] LABS: ALBUMIN 2.5 g/dL (3.4-5.0); CALCIUM 10.7 mg/dL (8.5-10.1); CREATININE 1.5 mg/dL (0.6-1.0); GFR 33.3; PHOSPHORUS 4.4 mg/dL (2.6-4.7)
--- NOTE | 2021-10-25 09:49 | PDOC ---
[employer] PROGRESS NOTE Date of Service: DATE: 10/25/21 TIME: 09:49 Subjective: Pt not complete sure that bleeding is coming from vagina. Pt still with some soreness. Pt wonders when she will be able to go home. Discussed u/s results with the pt. Objective: Vital Signs: Vital Signs Date Time Temp Pulse Resp B/P (MAP) Pulse Ox O2 Delivery O2 Flow Rate FiO2 10/24/21 07:00 98.1 63 18 122/48 (72) 94 Nasal Cannula 2.0 98.1 Vital Signs Date Time Temp Pulse Resp B/P (MAP) Pulse Ox O2 Delivery O2 Flow Rate FiO2 10/25/21 08:00 Nasal Cannula 2.0 10/25/21 07:00 98.0 83 20 122/50 (74) 90 98.0 Labs: Laboratory Tests Test 10/24/21 12:04 10/24/21 21:19 10/25/21 06:00 10/25/21 07:40 Glucose (Fingerstick) 160 mg/dL (70-99) H 213 mg/dL (70-99) H 166 mg/dL (70-99) H White Blood Count 6.2 x10^3/uL (4.0-11.0) Red Blood Count 2.69 x10^6/uL (3.50-5.40) L Hemoglobin 7.5 g/dL (12.0-15.5) L Hematocrit 23.8 % (36.0-47.0) L Mean Corpuscular Volume 88 fL (79-100) Mean Corpuscular Hemoglobin 28 pg (25-35) Mean Corpuscular Hemoglobin Concent 31 g/dL (31-37) Red Cell Distribution Width 19.3 % (11.5-14.5) H Platelet Count 182 x10^3/uL (140-400) Sodium Level 143 mmol/L (136-145) Potassium Level 4.0 mmol/L (3.5-5.1) Chloride Level 106 mmol/L (98-107) Carbon Dioxide Level 28 mmol/L (21-32) Anion Gap 9 (6-14) Blood Urea Nitrogen 36 mg/dL (7-20) H Creatinine 1.5 mg/dL (0.6-1.0) H Estimated GFR (Cockcroft-Gault) 33.3 Glucose Level 165 mg/dL (70-99) H Calcium Level 10.7 mg/dL (8.5-10.1) H Phosphorus Level 4.4 mg/dL (2.6-4.7) Iron Level 16 ug/dL (50-170) L Total Iron Binding Capacity 223 ug/dL (250-450) L Iron Saturation 7 % (15-34) L Ferritin 83 ng/mL (8-252) Albumin 2.5 g/dL (3.4-5.0) L Laboratory Tests 10/25/21 06:00 Laboratory Tests 10/25/21 06:00 Laboratory Tests 10/25/21 06:00 Physical Exam: GENERAL: No apparent distress. Alert and oriented. HEENT: Head normocephalic, atraumatic. NECK: Supple LUNGS: Clear to auscultation. HEART: RRR, S1, S2 present, pulses intact ABDOMEN: Soft, positive bowel sounds. EXTREMITIES: No cyanosis or edema. NEUROLOGIC: Normal speech, normal tone PSYCHIATRIC: Normal affect, normal mood. SKIN: No ulceration. 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 4.) Fibroids no intervention necessary 5.) H/o DVT 6.) Acute blood loss anemia Hgb 7.5, thought to be from GI source or chronic dz with the metastatic CA 7.) IVON nephrology consulted 8.) DM2 on sliding scale, managed per hospitalist 9.) HTN - cont home meds, per hospitalist 10.) Mild bilateral hydronephrosis and hydroureter - possibly due to bladder mass, will monitor UOP, Cr 1.5-1.7 over the course of the hospitalization 11.) Limited mobility - unable to walk, likely right knee metastatic disease JONELLE WOO MD October 25, 2021 09:49
[2021-10-25] MEDS: DOCUSATE SODIUM 100 MG CAPSULE. PO SCH (10:02)
--- NOTE | 2021-10-25 10:05 | PDOC ---
DATE OF SERVICE DATE: 10/25/21 TIME: 10:03 SUBJECTIVE ROS No N/V. No SOB Poor PO intake oer Nursing UOP not recorded OBJECTIVE Vital Signs Vital Signs Date Time Temp Pulse Resp B/P (MAP) Pulse Ox O2 Delivery O2 Flow Rate FiO2 10/25/21 08:00 Nasal Cannula 2.0 10/25/21 07:00 98.0 83 20 122/50 (74) 90 98.0 I & 0 Intake and Output 10/25/21 07:00 Intake Total 460 ml Balance 460 ml Intake Oral 460 ml # Voids 3 PHYSICAL EXAM Physical Exam General: NAD HEENT: Atraumatic, PERRLA, EOMI, Mucous membr. moist/pink Neck Supple Lungs: Clear to auscultation,Non labored Heart: S1S2, RRR, no thrills, no rubs, no gallops, no murmurs Abdomen: Normal bowel sounds, Soft, No tenderness, No hepatosplenomegaly, No masses Extremities: No clubbing, No cyanosis, No edema, Skin: No rashes, No Neuro: Grossly normal Psych/Mental Status: Cooperative No Flank or SP tenderness DIAGNOSIS/ASSESSMENT Assessment & Plan IVON vs CKD - Vasomotor, No labs available since 2019 (Cr was normal) , Dehydration , UTI . Stable renal function. Supportive care, maintain hydration, Avoid Nephrotoxins, Strict I/O (UOP not recorded) UTI- UA cw UTI Hydronephrosis - new mild bilateral hydronephrosis and hydroureter. No obstructing calculus seen. New moderate bladder wall thickening, greatest anteriorly.Defer to Urology HyperCalcemia - 2/2 Dehydration vs Malignancy Ca trending down with IVF, Monitor closely, strict I/O . Consider Zoledronic acid if stays elevated . Consult Oncology Acute blood loss anemia - due to GI loss and likely of chronic disease with metastatic cancer. Management per Oncology Rectal bleeding -Hx of hemorrhoids HTN - cont home meds DM2 Metastatic breast cancer - worsened diffuse osseous metastatic disease with increased bony destruction of the pelvis and increased metastatic disease in the lumbar spine and T8 and 9th rib. She is asking for Palliative care referral COMMENT/RELEVANT DATA Meds Current Medications Medications (Trade) Dose Ordered Sig/Kamala Start Time Stop Time Status Last Admin Dose Admin Acetaminophen (Tylenol) 650 mg PRN Q4HRS PRN 10/23/21 20:15 10/24/21 20:14 DC Dextrose (Dextrose 50%-Water Syringe) 12.5 gm PRN Q15MIN PRN 10/23/21 21:45 Docusate Sodium (Colace) 100 mg BID 10/24/21 09:00 10/24/21 21:21 100 MG Hydrocortisone/ Pramoxine (Proctofoam-Hc Foam) 1 juvencio PRN QID PRN 10/23/21 21:45 Info (CONTRAST GIVEN -- Rx MONITORING) 1 each PRN DAILY PRN 10/23/21 13:45 10/25/21 13:44 Insulin Human Lispro (HumaLOG) 0-9 UNITS TIDACHC 10/24/21 07:30 10/25/21 07:51 4 UNITS Iohexol (Omnipaque 300 Mg/ml) 75 ml 1X ONCE 10/23/21 13:45 10/23/21 13:46 DC Magnesium Hydroxide (Milk Of Magnesia) 400 mg HS 10/24/21 21:00 10/24/21 21:23 400 MG Morphine Sulfate (Morphine Sulfate) 4 mg PRN Q4HRS PRN 10/25/21 06:30 Cancel Ondansetron HCl (Zofran) 4 mg PRN Q6HRS PRN 10/25/21 06:30 Cancel Oxycodone HCl (Roxicodone) 5 mg PRN Q6HRS PRN 10/23/21 22:00 Pantoprazole Sodium (Protonix) 40 mg DAILYAC 10/24/21 11:30 10/25/21 07:50 40 MG Sodium Chloride 1,000 ml @ 125 mls/hr 1X ONCE 10/23/21 20:45 10/24/21 04:44 DC 10/23/21 21:44 125 MLS/HR Lab Laboratory Tests Test 10/24/21 12:04 10/24/21 21:19 10/25/21 06:00 10/25/21 07:40 Glucose (Fingerstick) 160 mg/dL (70-99) 213 mg/dL (70-99) 166 mg/dL (70-99) White Blood Count 6.2 x10^3/uL (4.0-11.0) Red Blood Count 2.69 x10^6/uL (3.50-5.40) Hemoglobin 7.5 g/dL (12.0-15.5) Hematocrit 23.8 % (36.0-47.0) Mean Corpuscular Volume 88 fL (79-100) Mean Corpuscular Hemoglobin 28 pg (25-35) Mean Corpuscular Hemoglobin Concent 31 g/dL (31-37) Red Cell Distribution Width 19.3 % (11.5-14.5) Platelet Count 182 x10^3/uL (140-400) Sodium Level 143 mmol/L (136-145) Potassium Level 4.0 mmol/L (3.5-5.1) Chloride Level 106 mmol/L (98-107) Carbon Dioxide Level 28 mmol/L (21-32) Anion Gap 9 (6-14) Blood Urea Nitrogen 36 mg/dL (7-20) Creatinine 1.5 mg/dL (0.6-1.0) Estimated GFR (Cockcroft-Gault) 33.3 Glucose Level 165 mg/dL (70-99) Calcium Level 10.7 mg/dL (8.5-10.1) Phosphorus Level 4.4 mg/dL (2.6-4.7) Iron Level 16 ug/dL (50-170) Total Iron Binding Capacity 223 ug/dL (250-450) Iron Saturation 7 % (15-34) Ferritin 83 ng/mL (8-252) Albumin 2.5 g/dL (3.4-5.0) Results All relevant outside records, renal labs, imaging studies, telemetry/EKG's were reviewed. Justicifation of Admission Dx: Justifications for Admission: Justification of Admission Dx: N/A CHEN ROBIN MD October 25, 2021 10:05
--- NOTE | 2021-10-25 10:21 | PDOC ---
Date of Service: DATE: 10/25/21 TIME: 10:12 Objective: Objective: D/w nurse - no bleeding, has significant pain. D/w Dr. Mishra - seems like plans for Hospice. Vital Signs: Vital Signs Date Time Temp Pulse Resp B/P (MAP) Pulse Ox O2 Delivery O2 Flow Rate FiO2 10/25/21 08:00 Nasal Cannula 2.0 10/25/21 07:00 98.0 83 20 122/50 (74) 90 98.0 Labs: Laboratory Tests Test 10/24/21 12:04 10/24/21 21:19 10/25/21 07:40 Glucose (Fingerstick) 160 mg/dL (70-99) 213 mg/dL (70-99) 166 mg/dL (70-99) Imaging: Pelv US IMPRESSION: 1. Extremely limited exam due to patient body habitus and empty urinary bladder. The endometrial stripe and ovaries are obscured. The recently demonstrated multiple calcified masses involving the uterus likely due to calcified uterine fibroids are not well seen sonographically. 2. Prominent uterus size for the postmenopausal nulligravida status of the pat ient. PE: GEN: NAD ABD: non-distended NEURO/PSYCH: sleeping - not disturbed A/P: Metastatic breast cancer ACD/LILLIAN - slight drift in Hgb w/o obvious bleeding since admission Hypercalcemia, IVON/CKD, mild bilateral hydronephrosis and hydroureter, ?UTI H/o hemorrhoids/banding @ [facility] - discussed w/ [facility] nurse yesterday H/o DVT on Xarelto and ASA -- No obvious bleeding here. Discussion for Hospice which would be appropriate - await final plans. Justicifation of Admission Dx: Justifications for Admission: Justification of Admission Dx: Yes YUMIKO CONTRERAS October 25, 2021 10:21
[2021-10-25 11:00] VITALS: BP 117/49
[2021-10-25] MEDS ORDERED: IV NORMAL SALINE 1000ML BAG 1,000 ML IV SCH (11:15)
--- NOTE | 2021-10-25 11:19 | NUR ---
SS following up with discharge planning. SS reviewed pt chart and discussed with pt RN. 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 Pt is currently requiring oxygen at two liters nasal canula. DNR. Pt requesting to go back to [facility] to meet with [facility] to discuss hospice services. SS discussed with Ai PATEL, at [facility]. Oxygen available at [facility]. Pt reported that [facility] will make all hospice arrangements if decided. Pt's RN notified. SS will continue to follow for discharge planning. Addendum: 10/25/21 at 1452 by NA NAVARRO SS Discharge orders received. [facility] notified and requesting ambulance transport be arranged. Pt will discharge today and return to [facility] at 1530 via [facility] ambulance. Ambulance form and packet on the chart.
--- NOTE | 2021-10-25 11:25 | SNU/HH DC ---
DISCHARGE ORDERS DISCHARGE INFORMATION: DISCHARGE DATE: October 25, 2021 FINAL DIAGNOSIS Problems Medical Problems: (1) Anemia Status: Acute (2) Compression fracture of T8 vertebra Status: Acute (3) Hemorrhoids Status: Acute CONDITION ON DISCHARGE: Guarded CODE STATUS: Code Status: DNR/DNI HOSPICE: HOSPICE: Yes HOSPICE EVAL & TREAT: Yes POST DISCHARGE ORDERS: ACTIVITY ORDERS: Activity as tolerated FOLLOW-UP: PHYSICIAN FOLLOW-UP: PCP within 2 weeks of discharge ADDITIONAL FOLLOW-UP: Hospice evaluation Additional Instructions: Need to obtain sitz bath's eat from medical supply store DISCHARGE MEDICATIONS: Home Meds Active Scripts Hydrocortisone (PREPARATION H) 26 Gm Cream..g., 26 GM TP Q6HRS PRN for PAIN for 30 Days, #120 EACH Prov:KLEBER VEGA MD 10/25/21 Reported Medications Bifidobacterium Infantis (ALIGN) 4 Mg Capsule, 4 MG PO DAILY for gut health, CAP 01/16/19 Magnesium Hydroxide (MILK OF MAGNESIA) 400 Mg/5 Ml Oral.susp, 400 MG PO PRN for constipation, MISC 01/16/19 Ondansetron Hcl (ZOFRAN) 4 Mg Tablet, 1 TAB PO Q6HRS for nausea, #20 TAB 01/16/19 Docusate Sodium (COLACE) 100 Mg Capsule, 100 MG PO DAILY for constipation, CAP 01/16/19 Vit A/Vit C/Vit E/Zinc/Copper (PRESERVISION AREDS SOFTGEL) 1 Each Capsule, 1 EACH PO 1X for suppliment, CAP 01/16/19 Bifidobacterium Infantis (ALIGN) 4 Mg Capsule, 4 MG PO 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 09/22/18 Insulin Lispro (HUMALOG) 100 Unit/1 Ml Insuln.pen, 24 UNIT SQ BID for diabetes 08/12/18 Insulin Detemir (LEVEMIR) 100 Unit/1 Ml Vial, 42 UNIT SQ DAILYWBKFT for diabetes 08/12/18 Vit A/Vit C/Vit E/Zinc/Copper (PRESERVISION AREDS SOFTGEL) 1 Each Capsule, 1 EACH PO DAILY 03/08/15 Insulin Detemir (LEVEMIR) 100 Unit/1 Ml Vial, 65 UNIT SQ HS for diabetes 09/20/13 Discontinued Reported Medications Loperamide HCl (Imodium A-D) 2 Mg Capsule, 2 MG PO PRN for loose stool, CAP 01/16/19 Acetaminophen (ACETAMINOPHEN) 500 Mg Tablet, 500 MG PO TID for pain, TAB 01/16/19 Atorvastatin Calcium (LIPITOR) 40 Mg Tablet, 1 TAB PO QHS for cholesterol, #90 TAB 1 Refill 01/16/19 Aspirin (ASPIRIN) 81 Mg Tab.chew, 1 TAB PO DAILY for heart med, #30 TAB 3 Refills 01/16/19 Hydrocodone/Apap 5-325 (NORCO 5-325 TABLET) 1 Each Tablet, 1 TAB PO PRN Q6HRS PRN for PAIN 08/12/18 Atorvastatin Calcium (LIPITOR) 40 Mg Tablet, 40 MG PO HS for FOR CHOLESTEROL 08/12/18 Docusate Sodium (COLACE) 100 Mg Capsule, 100 MG PO 2tabs po daily 03/08/15 Potassium Chloride (POTASSIUM CHLORIDE) 20 Meq Tab.er.prt, 20 MEQ PO 2tabs(40meq) BID for hypokalemia 03/08/15 Rivaroxaban (XARELTO) 20 Mg Tablet, 20 MG PO DAILY for PVD--Recurring cellulitis 09/20/13 Furosemide (FUROSEMIDE) 40 Mg Tablet, 20 MG PO BID for diuretic 09/20/13 KLEBER VEGA MD October 25, 2021 11:25
[2021-10-25] MEDS ORDERED: HYDR26CR2 TP (11:29)
[2021-10-25] MEDS ORDERED: MORPHINE IR 15 MG TABLET PO PRN (14:15)
[2021-10-25] MEDS ORDERED: PHENYLEPH/MINERAL OIL/PETROLAT RECTAL OINTMENT TUBE. RC PRN (14:15)
[2021-10-25] MEDS ORDERED: HEPARIN PF 500 UNIT/5 ML DISP.SYRIN. IVP ONE (14:15)
[2021-10-25 15:00] VITALS: BP 121/41
[2021-10-25] MEDS ORDERED: MORP15TA PO ×2 (15:09→15:14)
[2021-10-25] MEDS ORDERED: MORP-15 PO (15:09)
--- NOTE | 2021-10-25 15:43 | NUR ---
Pt left unit at 1543 by stretcher via EMS. Pt's port deaccessed, VSS. Discharge paperwork sent with pt, report called to [facility].
[2021-10-25] MEDS ORDERED: MORPHINE ER 15 MG TABLET.ER PO SCH (21:00)
== END 2021-10-25 15:58 | disposition hospice, home (50) | DRG 377 ==
LOC: ER 11:16 → 5 NORTH 17:33
PROVIDERS: ADMIT Internal Medicine; ATTEND Internal Medicine
DX: K62.5 Hemorrhage of anus and rectum (principal); N17.0 Acute kidney failure with tubular necrosis; S22.060A Wedge compression fracture of T7-T8 vertebra, initial encounter for closed fracture; D62 Acute posthemorrhagic anemia; N13.30 Unspecified hydronephrosis; C79.51 Secondary malignant neoplasm of bone; C20 Malignant neoplasm of rectum; N39.0 Urinary tract infection, site not specified; C50.919 Malignant neoplasm of unspecified site of unspecified female breast; K64.9 Unspecified hemorrhoids; D25.9 Leiomyoma of uterus, unspecified; E11.42 Type 2 diabetes mellitus with diabetic polyneuropathy; E83.52 Hypercalcemia; K59.00 Constipation, unspecified; K80.20 Calculus of gallbladder without cholecystitis without obstruction; N32.9 Bladder disorder, unspecified; Z79.01 Long term (current) use of anticoagulants; Z82.49 Family history of ischemic heart disease and other diseases of the circulatory system; Z83.3 Family history of diabetes mellitus; Z85.3 Personal history of malignant neoplasm of breast; Z86.718 Personal history of other venous thrombosis and embolism; Z90.11 Acquired absence of right breast and nipple; Z90.710 Acquired absence of both cervix and uterus; Z95.828 Presence of other vascular implants and grafts; Z98.41 Cataract extraction status, right eye; Z98.42 Cataract extraction status, left eye; Z99.3 Dependence on wheelchair; Z88.8 Allergy status to other drugs, medicaments and biological substances; W18.39XA Other fall on same level, initial encounter; Y93.89 Activity, other specified; Y92.89 Other specified places as the place of occurrence of the external cause; Y99.8 Other external cause status; I12.9 Hypertensive chronic kidney disease with stage 1 through stage 4 chronic kidney disease, or unspecified chronic kidney disease; E11.22 Type 2 diabetes mellitus with diabetic chronic kidney disease; N18.9 Chronic kidney disease, unspecified; Z79.4 Long term (current) use of insulin
CPT/HCPCS: 36415; 74176; 76856; 80053; 80069; 81001; 82274; 82728; 82962; 83540; 83550; 85025; 85027; 85610; 85730; 86850; 86900; 86901; 87077; 87086; 96374; J1642; J1815; J2270; J2405; J7030; 99285-25; G0378